=== PATIENT | male | born 1950 | race Caucasian/White ===

== ENCOUNTER 2018-08-17 08:59 | Outpatient (CLI) | payer MEDICARE, SELFPAY ==
[2018-08-17 12:28] LABS: Cholesterol 177 mg/dL (50-200); HDL Cholesterol 41 mg/dL (40-60); LDL CHOLESTEROL 121 mg/dL (<100); Triglyceride 81 mg/dL (30-150); Vitamin B12 212 pg/mL (193-986)
== END 2018-08-17 09:19 ==
PROVIDERS: PCP Emergency Medicine; Visit Provider Emergency Medicine
DX: D51.8 Other vitamin B12 deficiency anemias (principal); E78.5 Hyperlipidemia, unspecified
CPT/HCPCS: 36415; 80061; 83721; 82607

== ENCOUNTER 2019-06-06 14:37 | Outpatient (REF) | payer MEDICARE, OTHER, SELFPAY ==
[2019-06-06 19:27] LABS: Bilirubin Negative (Negative); Blood Negative (Negative); Clarity Clear (Clear); Glucose Negative (Negative); Ketones Negative (Negative); Leukocyte Esterase Moderate (Negative); Nitrite Negative (Negative); Specific Gravity 1.015 (1.005-1.025); Urobilinogen 0.2 EU/dL (Up TO 0.2)
[2019-06-06 20:08] LABS: Bacteria Moderate HPF (Negative); C & S Indicated? Yes; Casts Negative LPF (Negative); Crystals Moderate Amorphous HPF (Negative); Epithelial Cells Negative HPF (Negative); Mucus Negative (Negative); Other Cells Negative (Negative); RBC Negative (0-2); WBC 20-50 HPF (0-5)
== END 2019-06-06 14:57 ==
LOC: LBN 14:37
PROVIDERS: PCP Emergency Medicine; Visit Provider Emergency Medicine
DX: R31.9 Hematuria, unspecified (principal)
CPT/HCPCS: 81003; 81015; 87086

== ENCOUNTER 2019-06-09 00:39 | Outpatient (CLI) | payer MEDICARE, OTHER, SELFPAY ==
--- NOTE | 2019-06-09 06:44 | DI.US_ITS ---
EXAM: US AAA SCREENING CLINICAL HISTORY: family h/o aaa,SCREENING FOR AAA,Z13.6 TECHNIQUE: Ultrasound performed using standard protocol. COMPARISON: No exams were available for comparison FINDINGS: There is no evidence of abdominal aortic aneurysm. Maximum dimension of the aorta is 2.6 cm proximal ly. The proximal iliac arteries are normal in diameter. IMPRESSION: No evidence abdominal aortic aneurysm.
[2019-06-09 08:52] LABS: Anion Gap 10.4 mmol/L (3-11); BUN 18 mg/dL (7-18); CO2 26.6 mmol/L (21.0-32.0); CREATININE 1.28 mg/dL (0.70-1.30); Chloride 106 mmol/L (98-107); Estimated GFR 55.72 (mL/min/1.73m2); Glucose 95 mg/dL (70-100); Potassium 4.5 mmol/L (3.5-5.1); Sodium 143 mmol/L (136-145)
[2019-06-09 08:57] LABS: Bilirubin Negative (Negative); Blood Trace-intact (Negative); Clarity Clear (Clear); Glucose Negative (Negative); Ketones Negative (Negative); Leukocyte Esterase Small (Negative); Nitrite Positive (Negative); Urobilinogen 0.2 EU/dL (Up TO 0.2)
[2019-06-09 09:13] LABS: Bacteria Many HPF (Negative); C & S Indicated? Yes; Casts Negative LPF (Negative); Crystals Negative HPF (Negative); Epithelial Cells Few HPF (Negative); Mucus Trace (Negative); Other Cells Few Transitional (Negative); RBC 0-2 (0-2); WBC >50 HPF (0-5)
[2019-06-12 11:20] LABS: PSA, Screening 0.5 ng/ml (0-4.5)
== END 2019-06-09 00:59 ==
PROVIDERS: PCP Emergency Medicine; Visit Provider Emergency Medicine
DX: Z13.6 Encounter for screening for cardiovascular disorders (principal); I10 Essential (primary) hypertension; R33.9 Retention of urine, unspecified; N39.0 Urinary tract infection, site not specified; R30.0 Dysuria; Z12.5 Encounter for screening for malignant neoplasm of prostate
CPT/HCPCS: 36415; 76706; 80048; 84153; 81003; 81015; 87086

== ENCOUNTER 2019-06-28 01:30 | Outpatient (CLI) | payer MEDICARE, OTHER, SELFPAY ==
[2019-06-28 09:45] LABS: Bilirubin Negative (Negative); Blood Negative (Negative); Clarity Sl Cloudy (Clear); Glucose Negative (Negative); Ketones Negative (Negative); Leukocyte Esterase Small (Negative); Nitrite Negative (Negative); Urobilinogen 0.2 EU/dL (Up TO 0.2); pH 6.5 (5-8)
[2019-06-28 09:55] LABS: Bacteria Packed HPF (Negative); C & S Indicated? Yes; WBC 20-50 HPF (0-5)
== END 2019-06-28 01:50 ==
PROVIDERS: PCP Emergency Medicine; Visit Provider Emergency Medicine
DX: R30.0 Dysuria (principal)
CPT/HCPCS: 87077; 81003; 81015; 87086; 87186

== ENCOUNTER 2019-07-14 01:28 | Outpatient (CLI) | payer MEDICARE, OTHER, SELFPAY ==
[2019-07-14 10:22] LABS: Bilirubin Negative (Negative); Blood Negative (Negative); Clarity Clear (Clear); Glucose Negative (Negative); Ketones Negative (Negative); Leukocyte Esterase Negative (Negative); Nitrite Negative (Negative); Urobilinogen 0.2 EU/dL (Up TO 0.2)
== END 2019-07-14 01:48 ==
PROVIDERS: PCP Emergency Medicine; Visit Provider Emergency Medicine
DX: R30.0 Dysuria (principal)
CPT/HCPCS: 81003

== ENCOUNTER → 2019-09-22 07:55 | Outpatient (BNVA) | payer MEDICARE, OTHER, SELFPAY | PROVIDERS: PCP Emergency Medicine; Referring Provider Emergency Medicine; Visit Provider Urology | DX: R33.9 Retention of urine, unspecified (principal); N32.3 Diverticulum of bladder; N39.0 Urinary tract infection, site not specified | CPT/HCPCS: 81003; 99203; 99214 ==

== ENCOUNTER 2020-03-06 14:21 | Emergency (ER) | payer MEDICARE, OTHER, SELFPAY ==
--- NOTE | 2020-03-06 14:30 | RT.EKG_ITS ---
APPROVED REPORT Exam: Resting ECG Patient Location: E HR:56 bpm ECG Measurements Heart Rate 56 AXIS MS 174 P 38 QRSd 100 QRS -8 QT 429 T 51 QTc 414 <Conclusion> Sinus bradycardia...rate< 60 EKG shows sinus bradycardia 56, normal axis, no STEMI, nondiagnostic EKG
[2020-03-06 14:39] VITALS: BP 154/74; PULSE 57; RESP 18; TEMP 36.7; O2SAT 97
--- NOTE | 2020-03-06 14:45 | DI.RAD_ITS ---
EXAM: XR CHEST 2V PA LATERAL CLINICAL HISTORY: SOB TECHNIQUE: 2D digital imaging was performed. COMPARISON: CR LEFT SHOULDER COMPLETE from 12/03/2017 FINDINGS: MEDIASTINUM: Normal. HEART: Normal. PULMONARY VASCULATURE: Normal. LUNGS: Clear. PLEURAL SPACE: No pleural effusion or pneumothorax. BONE: degenerative changes in the spine OTHER FINDINGS:Right shoulder prosthesis. Hardware in the lower cervical spine. IMPRESSION: No acute pulmonary findings. DATA REPOSITORY: RADIATION DOSE DELIVERED:
[2020-03-06 15:19] LABS: Abs Immature Grans 0.01 10^3/uL (0.0-0.06); Absolute Basophil Count 0.03 10^3/uL (0.0-0.2); Absolute Eosinophil Count 0.07 10^3/uL (0.0-0.7); Absolute Lymphocyte Count 1.83 10^3/uL (1.2-3.4); Absolute Monocyte Count 0.56 10^3/uL (0.1-0.8); Absolute Neutrophil Count 2.27 10^3/uL (1.2-6.7); Basophils % 0.6; Eosinophils % 1.5; HCT 41.1 % (40.0-50.0); HGB 13.9 g/dL (13.5-17.5); Immature Grans % 0.2; Lymphocytes % 38.4; MCH 32.4 pg (27.0-33.0); MCHC 33.8 % (32.0-36.0); MCV 95.8 fL (80-95); MPV 9.9 fL (8.0-11.0); Monocytes % 11.7; Neutrophils % 47.6; Platelet Count 237 10^3/uL (130-400); RBC 4.29 10^6/uL (4.36-5.78); RDW 12.1 % (11.8-14.1); RDW-SD 42.5 fL; WBC 4.77 10^3/uL (4.4-10.8)
[2020-03-06 15:45] LABS: ALT 33 U/L (16-63); AST 22 U/L (15-37); Albumin 3.6 g/dL (3.4-5.0); Alkaline Phosphatase 97 U/L (46-116); Anion Gap 8.8 mmol/L (3-11); BUN 18 mg/dL (7-18); CO2 26.2 mmol/L (21.0-32.0); CREATININE 1.24 mg/dL (0.70-1.30); Calcium 8.4 mg/dL (8.5-10.1); Chloride 104 mmol/L (98-107); Estimated GFR 57.63 (mL/min/1.73m2); Glucose 93 mg/dL (74-106); NT-proBNP 62 pg/mL (<300); Potassium 3.9 mmol/L (3.5-5.1); Sodium 139 mmol/L (136-145); Total Protein 6.8 g/dL (6.4-8.2); Troponin I < 0.05 ng/mL (<0.06)
[2020-03-06 16:01] LABS: D-Dimer 951 ng/mlFEU (<500)
[2020-03-06] MEDS: Normal Saline - Diluent 50 ML VIAL IV (16:45)
[2020-03-06] MEDS: Omnipaque 350 MG/ML 100 ML BTL IJ (16:46)
[2020-03-06] MEDS: Normal Saline Flush 10 ML SYR IVP (16:46)
--- NOTE | 2020-03-06 16:48 | DI.CT_ITS ---
EXAM: CT CHEST PE CTA CLINICAL HISTORY: pre-syncope, SOB. TECHNIQUE: Imaging Protocol: Axial CT angiography was performed with multi-slice acquisition and mu lti-planar and/or 3D reconstructions. CONTRAST MATERIAL: Intravenous: Omnipaque 350 Contrast volume:structured data in ml COMPARISON: CR XR CHEST 2V PA LATERAL from 03/06/2020 FINDINGS: Pulmonary Arteries: No evidence of filling defect to suggest pulmonary emboli. Tracheobronchial tree: Patent where visualized. Mediastinum and Sallie: No dominant adenopathy or fluid collection. Pulmonary parenchyma: No consolidation or dominant measurable mass. Minimal linear atelectasis or sc arring at the right lung apex. No visible emphysematous changes.. Pleura: No effusion or pneumothorax. Heart: The heart is not dilated. No coronary artery calcifications are seen. Aorta: There is motion at the aortic root. There is no evidence of aortic dissection. The ascending aorta is dilated to 4.5 cm.. Upper abdomen: Unremarkable. Bones: Old right 7th and 8th rib fractures. Mild degenerative disc changes. Hardware in the lower c ervical spine. IMPRESSION: No evidence of pulmonary embolism or other acute abnormality. 4.5 centimeter ascending aorta. RADIATION DOSE DELIVERED: 449.76mGy.cm Total DLP DATA REPOSITORY: All CT scans at this facility are submitted to the National Radiology Data Registry (NRDR) Dose Index Registry (DIR) with the [employer] (ACR). RADIATION OPTIMIZATION: All CT scans at this facility use at least one of these dose optimization te chniques: automated exposure control; mA and/or kV adjustment per patient size (includes targeted exa ms where dose is matched to clinical indication); or iterative reconstruction.
--- NOTE | 2020-03-06 17:21 | DI.VRAD_ITS ---
PROCEDURE INFORMATION: Exam: CT Angiography Chest With Contrast Exam date and time: 03/06/2020 4:40 PM Age: 69 years old Clinical indication: Pain; Other: SOB TECHNIQUE: Imaging protocol: Computed tomographic angiography of the chest with intravenous contrast. 3D rendering: MIP and/or 3D reconstructed images were created by the technologist. COMPARISON: CR XR CHEST 2V PA LATERAL 03/06/2020 3:42 PM FINDINGS: Pulmonary arteries: Normal. No pulmonary emboli. Aorta: There is aneurysmal dilatation of the ascending aorta measuring up to 4.5 cm in diameter. No evidence of aortic dissection with some limitation in evaluation of the ascending aorta due to motion. Lungs: There is linear atelectasis or scar in the right pulmonary apex, both lower lobes, and the lingula. No focal area of consolidation. No discrete pulmonary nodule. Pleural space: Unremarkable. No pneumothorax. No pleural effusion. Heart: Unremarkable. No cardiomegaly. No pericardial effusion. Lymph nodes: There are few subcentimeter pretracheal and prevascular lymph nodes. No pathologically enlarged mediastinal or hilar lymph nodes. Bones/joints: Healed fractures right lateral 7th and 8th ribs. No acute fracture. No suspicious lytic or sclerotic bone lesion. Orthopedic hardware anterior lower cervical fusion partially visualized. Soft tissues: Unremarkable. IMPRESSION: 1. No evidence of pulmonary embolus or other acute intrathoracic process. 2. 4.5 cm ascending aortic aneurysm with limited evaluation for dissection but no evidence of dissection. Dictated and Authenticated by: Kyle Rodrigues MD. Ordering:ALFREDA Sadler MD
[2020-03-06 17:40] VITALS: BP 132/76; PULSE 56; RESP 18; TEMP 36.6; O2SAT 100
--- NOTE | 2020-03-06 17:48 | W.ED.GENAD ---
Discharge Plan Disposition Patient Disposition: HOME Condition: Stable Discharge Details Chief Complaint: SOB Clinical Impression: Pre-syncope, Aneurysm of ascending aorta Primary Care Provider: Perry Martini ED Provider: Viktoriya Rojas Home Meds and New Rx's Prescriptions: Continued triamcinolone acetonide 0.1 % ointment 1 applic TP DAILY Qty: 453.6 RF: 0 tamsulosin [Flomax] 0.4 mg capsule 0.4 mg PO .every 3rd day Qty: 30 RF: 12 clobetasol-emollient 15 GM cream 15 gm Topical BID PRN Qty: 3 RF: 6 lisinopril 5 mg tablet 5 mg PO DAILY Qty: 90 RF: 6 pravastatin 10 mg tablet 10 mg PO DAILY Qty: 90 RF: 3 aspirin 81 MG tablet,chewable 81 mg PO DAILY RF: 0 Discharge Instructions Instructions: Thoracic Aortic Aneurysm (ED), Near Syncope (ED) Additional Instructions: Please return immediately to the emergency department if you develop any new or worsening symptoms, if your condition does not improve as expected, or if you become otherwise concerned. It is extremely important that you call soon as possible to make an appointment to be seen in follow-up for this visit by your primary care doctor and with cardiothoracic surgery at [facility] as we discussed. If you do not hear from them tomorrow, please contact the cardiothoracic surgery office at [phone]. Referrals: Perry Martini, DO [Primary Care Provider] - Discharge Data Discharge Date/Time-TO BE ENTERED AT DEPARTURE: 03/06/20 20:50 Medical Decision Making Raúl Renee is a 69 y/o man who presented to the ED with positional lightheadedness/SOB, currently asymptomatic. Pt is well and non-toxic appearing on exam. 2+ systolic murmur. Concern for dehydration, metabolic/lyte derangement, cardiac disease, possible pulmonary embolism, other. Exam/hx not c/w sepsis, acute aortic pathology. Plan for screening labs, EKG, CXR, telemetry. labs reviewed, d-dimer elevated. Plan for CT chest. CT shows no PE, ascending aortic aneurysm 4.5cm. Likely non-actionable urgently, however given pre-syncopal symptoms, fam hx of aortic dz plan for consultation with [facility]. I discussed Pt presentation and results with Dr. Galindo of CT surgery, who recommends outpt f/u with him, will see Pt as outpt in 2 days, their office to call Pt, they will also schedule echo for tomorrow. I discussed this plan with the Pt who is amenable. I had a lengthy discussion with Patient regarding return to emergency department precautions, home care, and importance of outpatient follow-up. Pt verbalizes understanding of the plan and is amenable. Patient discharged to home with clear plan for outpatient follow-up. All questions were answered. Disposition decision was made weighing the risks and benefits of hospitalization versus outpatient treatment, the risk for further decompensation, and the patient's wishes. Medical Records Medical records reviewed: Yes I reviewed the patient's medical records. Imaging Data Radiologic Study: Attestation: I personally reviewed and interpreted this imaging study as follows: Radiologist's impression: EXAM: CT CHEST PE CTA CLINICAL HISTORY: pre-syncope, SOB. TECHNIQUE: Imaging Protocol: Axial CT angiography was performed with multi-slice acquisition and multi-planar and/or 3D reconstructions. CONTRAST MATERIAL: Intravenous: Omnipaque 350 Contrast volume:structured data in ml COMPARISON: CR XR CHEST 2V PA LATERAL from 03/06/2020 FINDINGS: Pulmonary Arteries: No evidence of filling defect to suggest pulmonary emboli. Tracheobronchial tree: Patent where visualized. Mediastinum and Sallie: No dominant adenopathy or fluid collection. Pulmonary parenchyma: No consolidation or dominant measurable mass. Minimal linear atelectasis or scarring at the right lung apex. No visible emphysematous changes.. Pleura: No effusion or pneumothorax. Heart: The heart is not dilated. No coronary artery calcifications are seen. Aorta: There is motion at the aortic root. There is no evidence of aortic dissection. The ascending aorta is dilated to 4.5 cm.. Upper abdomen: Unremarkable. Bones: Old right 7th and 8th rib fractures. Mild degenerative disc changes. Hardware in the lower cervical spine. IMPRESSION: No evidence of pulmonary embolism or other acute abnormality. 4.5 centimeter ascending aorta. EXAM: XR CHEST 2V PA LATERAL CLINICAL HISTORY: SOB TECHNIQUE: 2D digital imaging was performed. COMPARISON: CR LEFT SHOULDER COMPLETE from 12/03/2017 FINDINGS: MEDIASTINUM: Normal. HEART: Normal. PULMONARY VASCULATURE: Normal. LUNGS: Clear. PLEURAL SPACE: No pleural effusion or pneumothorax. BONE: degenerative changes in the spine OTHER FINDINGS:Right shoulder prosthesis. Hardware in the lower cervical spine. IMPRESSION: No acute pulmonary findings. Lab Data Lab results reviewed: Yes I reviewed the patient's lab results. Labs: Laboratory Tests Range/Units 03/06/20 03/06/20 03/06/20 15:10 15:10 15:10 WBC (4.4-10.8) 10^3/uL 4.77 RBC (4.36-5.78) 10^6/uL 4.29 L Hgb (13.5-17.5) g/dL 13.9 Hct (40.0-50.0) % 41.1 MCV (80-95) fL 95.8 H MCH (27.0-33.0) pg 32.4 MCHC (32.0-36.0) % 33.8 RDW (11.8-14.1) % 12.1 Plt Count (130-400) 10^3/uL 237 MPV (8.0-11.0) fL 9.9 Immature Gran % 0.2 Neutrophils % 47.6 Lymphocytes % 38.4 Monocytes % 11.7 Eosinophils % 1.5 Basophils % 0.6 Absolute Neutrophils (1.2-6.7) 10^3/uL 2.27 Absolute Lymphocytes (1.2-3.4) 10^3/uL 1.83 Absolute Monocytes (0.1-0.8) 10^3/uL 0.56 Absolute Eosinophils (0.0-0.7) 10^3/uL 0.07 Absolute Basophils (0.0-0.2) 10^3/uL 0.03 D-Dimer (<500) ng/mlFEU 951 H Sodium (136-145) mmol/L 139 Potassium (3.5-5.1) mmol/L 3.9 Chloride (98-107) mmol/L 104 Carbon Dioxide (21.0-32.0) mmol/L 26.2 Anion Gap (3-11) mmol/L 8.8 BUN (7-18) mg/dL 18 Creatinine (0.70-1.30) mg/dL 1.24 Estimated GFR/1.73 m2 (mL/min/1.73m2) 57.63 Glucose (74-106) mg/dL 93 Calcium (8.5-10.1) mg/dL 8.4 L Total Bilirubin (0.2-1.0) mg/dL 1.0 AST (15-37) U/L 22 ALT (16-63) U/L 33 Alkaline Phosphatase (46-116) U/L 97 Troponin I (<0.06) ng/mL < 0.05 NT-Pro-B Natriuret Pep (<300) pg/mL 62 Total Protein (6.4-8.2) g/dL 6.8 Albumin (3.4-5.0) g/dL 3.6 Range/Units 03/06/20 17:50 WBC (4.4-10.8) 10^3/uL RBC (4.36-5.78) 10^6/uL Hgb (13.5-17.5) g/dL Hct (40.0-50.0) % MCV (80-95) fL MCH (27.0-33.0) pg MCHC (32.0-36.0) % RDW (11.8-14.1) % Plt Count (130-400) 10^3/uL MPV (8.0-11.0) fL Immature Gran % Neutrophils % Lymphocytes % Monocytes % Eosinophils % Basophils % Absolute Neutrophils (1.2-6.7) 10^3/uL Absolute Lymphocytes (1.2-3.4) 10^3/uL Absolute Monocytes (0.1-0.8) 10^3/uL Absolute Eosinophils (0.0-0.7) 10^3/uL Absolute Basophils (0.0-0.2) 10^3/uL D-Dimer (<500) ng/mlFEU Sodium (136-145) mmol/L Potassium (3.5-5.1) mmol/L Chloride (98-107) mmol/L Carbon Dioxide (21.0-32.0) mmol/L Anion Gap (3-11) mmol/L BUN (7-18) mg/dL Creatinine (0.70-1.30) mg/dL Estimated GFR/1.73 m2 (mL/min/1.73m2) Glucose (74-106) mg/dL Calcium (8.5-10.1) mg/dL Total Bilirubin (0.2-1.0) mg/dL AST (15-37) U/L ALT (16-63) U/L Alkaline Phosphatase (46-116) U/L Troponin I (<0.06) ng/mL < 0.05 NT-Pro-B Natriuret Pep (<300) pg/mL Total Protein (6.4-8.2) g/dL Albumin (3.4-5.0) g/dL ECG Data Attestation: I personally reviewed and interpreted this ECG (s) as follows: Interpretation: EKG shows sinus bradycardia 56, normal axis, no STEMI, nondiagnostic EKG HPI General Mode of arrival: ambulatory. Date/Time Provider Initiated Documentation: 03/06/20 14:54. Limitations to Documentation: no limitations. Information obtained by: patient, RN notes reviewed and old records reviewed. HPI Narrative: Raúl Renee is a 69 y/o man with a h/o heavy alcohol use, HTN, HLD presenting to the emergency department with lightheadedness. Pt reports that over the past 2-3 months he has been having lightheadedness with standing. Pt reports this has been most noticeable at work. 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 When he goes from this position to standing, he often feels very lightheadeded as if he is going to pass out. He reports sensation passes quickly after sitting. He reports that he has been able to go about his activities as usual despite symtpoms. Lightheadedness is sometimes accompanied by SOB, which also resolves quickly. Pt reports that symptoms have not been worsening over time. Has never fainted or lost consciousness. Pt reports no new change, but came to the ED at the urging of his . No recent illness. Has been eating and drinking as usual. Lightheadedness only occurs with going from lying down to standing or sitting to standing. Denies pain, numbness, weakness, rash, vomiting, diarrhea, fever, cough. Related Data Home Medications Medication Instructions Recorded Confirmed aspirin 81 mg PO DAILY 03/27/13 03/06/20 clobetasol-emollient 15 gm TOPICAL BID PRN #3 tube 07/07/17 03/06/20 lisinopril 5 mg tablet 5 mg PO DAILY #90 tab-cap 05/30/19 03/06/20 triamcinolone acetonide 0.1 % 1 applic TP DAILY #453.6 gm 06/06/19 03/06/20 topical ointment pravastatin 10 mg tablet 10 mg PO DAILY #90 tab-cap 08/29/19 03/06/20 tamsulosin 0.4 mg capsule 0.4 mg PO .every 3rd day #30 cap 09/22/19 03/06/20 Previous Rx's Medication Instructions Recorded clobetasol-emollient 15 gm TOPICAL BID PRN #3 tube 07/07/17 lisinopril 5 mg tablet 5 mg PO DAILY #90 tab-cap 05/30/19 triamcinolone acetonide 0.1 % 1 applic TP DAILY #453.6 gm 06/06/19 topical ointment pravastatin 10 mg tablet 10 mg PO DAILY #90 tab-cap 08/29/19 tamsulosin 0.4 mg capsule 0.4 mg PO .every 3rd day #30 cap 09/22/19 Allergies Allergy/AdvReac Type Severity Reaction Status Date / Time amlodipine AdvReac Intermediate periphreal Verified 08/15/19 08:58 edema General Stated Complaint: SOB KISHA: 2 Review of Systems Narrative: Constitutional: denies fevers Eyes: denies eye pain ENT: denies ear pain, dental pain, sore throat Cardiovascular: denies chest pain, edema, reports lightheadedness Respiratory: denies cough, reports SOB as per HPI GI: denies abdominal pain, vomiting, diarrhea : denies flank pain MSK: denies back pain, neck pain, arthralgias, myalgias Skin: denies rash Neuro: denies headaches, numbness, weakness [facility] Medical History (Updated 03/06/20 @ 19:36 by Viktoriya Rojas MD) Benign paroxysmal positional vertigo (Acute 01/12/18) Bladder diverticulum (Acute 09/27/15) BPH (benign prostatic hyperplasia) Cervicalgia (Acute) s/p cervical fusion Chest pain (Acute 01/17/14) neg echo stress 02/19 neg MPI 06/24 Chronic left shoulder pain (Acute 01/12/18) Essential hypertension (Acute) Family history of abdominal aortic aneurysm (AAA) (Acute 07/07/17) HTN (hypertension) Hyperlipemia (Acute 02/28/14) Incomplete bladder emptying (Acute 09/27/15) Other vitamin B12 deficiency anemia (Acute) Psoriasis (Acute 07/07/17) Recurrent UTI (Acute 09/10/15) Strain of tendon of right rotator cuff (Acute 01/17/14) Transient global amnesia (Acute) DR CARDENAS 04/27; DR RUIZ 06/21/ Umbilical hernia (Acute 01/17/14) Surgical History (Updated 05/30/19 @ 13:13 by Joe Tariq) cevical fusion (06/30/99) [place], [place] Reconstruction right foot Status post replacement of right shoulder joint (Acute) Family History (Updated 06/07/19 @ 09:53 by Brijesh Roberts) Mother , age 78 Alzheimer disease Father , age 82 Cancer Sister No problems noted. Brother No problems noted. Maternal Grandfather Heart disease Paternal Grandfather Heart disease Maternal Grandmother No problems noted. Paternal Grandmother No problems noted. Son No problems noted. STEP DAUGHTER No problems noted. STEP DAUGHTER Colon cancer Sister No problems noted. Brother No problems noted. Social History Smoking/Tobacco Use Status: Former Tobacco Use Alcohol Intake: current Alcohol Intake frequency: holidays/special occasions only Drug use: Never Substance use type: does not use Caregiver/Support person: No Household members: spouse Housing: house Communication Needs: Hard of Hearing Do you need help understanding health information?: Never Pets and animals: Yes Pets and animals: cat(s) and dog(s) Sexually active: Yes Do you think of yourself as: straight/heterosexual Current gender identity: female What is your relationship status?: How often do you talk on the phone with friends or family?: once per week How often do you get together with friends or relatives?: once per week How often do you attend presybeterian or mosque services?: decline to answer Do you belong to any clubs or organized social groups?: no Panel score (0-1 are the most socially isolated patients): 1 What type of physical activity do you participate in: decline to answer Duration: decline to answer Frequency: decline to answer Arminda/Presybeterian: None Special arminda needs: No Seatbelt use: never Helmet use: Yes Helmet use: always 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 Do you feel safe at home: Yes Do you feel safe in your relationship?: Yes Exam Narrative Exam Narrative: Constitutional: well and [id number], pleasant, conversing normally HENT: head atraumatic/normocephalic/normal inspection, mucous membranes moist Eyes: conjunctiva normal, sclera normal, pupils 3mm b/l Neck: no stridor, normal ROM, trachea midline Chest: normal inspection Resp: normal work of breathing, LCTAB Cardio: normal rate, normal rhythm, 2+ systolic murmur GI: abdomen soft, non-tender, non-distended Back: normal inspection, no rash Skin: warm, dry, normal color, no rash Neuro: alert, not altered, grossly non-focal, normal tone Ext: trace b/l LE edema, no posterior calf TTP Psych: normal mood, normal affect, normal behavior Course Vital Signs Vital signs: Vital Signs Temperature 36.7 C 03/06/20 14:39 Pulse 57 L 03/06/20 14:39 Respiratory Rate 18 03/06/20 14:39 Blood Pressure 154/74 H 03/06/20 14:39 Pulse Oximetry 97 03/06/20 14:39 Temperature 36.6 C 03/06/20 17:40 Temperature Source Temporal Artery Scan 03/06/20 17:40 Pulse 56 L 03/06/20 17:40 Respiratory Rate 18 03/06/20 17:40 Respiratory Effort 03/06/20 15:46 Respiratory Depth Normal 03/06/20 15:46 Blood Pressure 132/76 03/06/20 17:40 Pulse Oximetry 100 03/06/20 17:40 Oxygen Delivery Method Room Air 03/06/20 17:40 Oxygen Flow Rate 0 03/06/20 17:40 Pain Level 0 03/06/20 17:40 Lab/Test Results Lab/Test Results: Laboratory Tests Range/Units 03/06/20 03/06/20 03/06/20 15:10 15:10 15:10 WBC (4.4-10.8) 10^3/uL 4.77 RBC (4.36-5.78) 10^6/uL 4.29 L Hgb (13.5-17.5) g/dL 13.9 Hct (40.0-50.0) % 41.1 MCV (80-95) fL 95.8 H MCH (27.0-33.0) pg 32.4 MCHC (32.0-36.0) % 33.8 RDW (11.8-14.1) % 12.1 Plt Count (130-400) 10^3/uL 237 MPV (8.0-11.0) fL 9.9 Immature Gran % 0.2 Neutrophils % 47.6 Lymphocytes % 38.4 Monocytes % 11.7 Eosinophils % 1.5 Basophils % 0.6 Absolute Neutrophils (1.2-6.7) 10^3/uL 2.27 Absolute Lymphocytes (1.2-3.4) 10^3/uL 1.83 Absolute Monocytes (0.1-0.8) 10^3/uL 0.56 Absolute Eosinophils (0.0-0.7) 10^3/uL 0.07 Absolute Basophils (0.0-0.2) 10^3/uL 0.03 D-Dimer (<500) ng/mlFEU 951 H Sodium (136-145) mmol/L 139 Potassium (3.5-5.1) mmol/L 3.9 Chloride (98-107) mmol/L 104 Carbon Dioxide (21.0-32.0) mmol/L 26.2 Anion Gap (3-11) mmol/L 8.8 BUN (7-18) mg/dL 18 Creatinine (0.70-1.30) mg/dL 1.24 Estimated GFR/1.73 m2 (mL/min/1.73m2) 57.63 Glucose (74-106) mg/dL 93 Calcium (8.5-10.1) mg/dL 8.4 L Total Bilirubin (0.2-1.0) mg/dL 1.0 AST (15-37) U/L 22 ALT (16-63) U/L 33 Alkaline Phosphatase (46-116) U/L 97 Troponin I (<0.06) ng/mL < 0.05 NT-Pro-B Natriuret Pep (<300) pg/mL 62 Total Protein (6.4-8.2) g/dL 6.8 Albumin (3.4-5.0) g/dL 3.6
[2020-03-06 18:12] VITALS: PULSE 54; RESP 20; TEMP 36.7; O2SAT 98
[2020-03-06 18:14] LABS: Troponin I < 0.05 ng/mL (<0.06)
--- NOTE | 2020-03-06 19:32 | NUR.NOTE ---
REFERALTO PCP FOR FOLLOW UP WITHIN WEEK FOR SYNCOPE AND ANUYRISMNursing Note:
[2020-03-06] MEDS: Normal Saline 500 ML IV (19:47)
[2020-03-06 20:54] VITALS: BP 133/81; PULSE 55; RESP 16; O2SAT 97
== END 2020-03-06 20:50 | disposition home or self-care (01) ==
PROVIDERS: Emergency Provider Student in an Organized Health Care Education/Training Program; PCP Emergency Medicine
DX: I71.2 Thoracic aortic aneurysm, without rupture (principal); H81.10 Benign paroxysmal vertigo, unspecified ear; R79.1 Abnormal coagulation profile; I10 Essential (primary) hypertension
CPT/HCPCS: 36415; 71275; 80053; 93005; 96360; 99285; 71046; 83880; 84484; 85025; 85379; 93010; 99284; J3490

== ENCOUNTER → 2020-03-11 11:11 | Outpatient (BNVA) | payer MEDICARE, OTHER, SELFPAY | PROVIDERS: PCP Emergency Medicine; Referring Provider Emergency Medicine; Visit Provider Internal Medicine Cardiovascular Disease | DX: R06.02 Shortness of breath (principal); R07.89 Other chest pain; I10 Essential (primary) hypertension; R55 Syncope and collapse; R60.1 Generalized edema | CPT/HCPCS: 99204; 99215 ==

== ENCOUNTER 2020-03-18 01:20 | Outpatient (CLI) | payer MEDICARE, OTHER, SELFPAY ==
--- NOTE | 2020-03-18 06:30 | DI.NM_ITS ---
APPROVED REPORT Exam: Exercise Treadmill Patient Location: Out-Patient Room/Bed: Stress Nurse: Anya Villagomez RN BMI: 30.64 Baseline Rhythm: Sinus Bradycardia, APC's Indications: Pre-Operative CV Evaluation, Dyspnea, SOB Medical History Medical History: CAD non obstructive, HTN, Hyperlipidemia, Ascending aortic anurysm Cardiac Medications: Aspirin, Lisinopril, Pravastatin Allergies: amlodipine Cardiac Risk Factors: HTN, Hyperlipidemia, FHX of CAD, SOB, CVD Pretest Chest Pain Characteristics: No chest pain Exercise History: Physically active Lung Sounds: Clear to auscultation Heart Sounds: Regular Stress Test Details Test: Exercise stress testing was performed using a Ronald protocol. Nuclear Acquisition: Rest Tc-99m/Stress Tc-99m 1 day Rest Isotope: Tc-99m Sestamibi. Dose: 15 Date: 03/18/2020 Injection Time: 0840 Stress Isotope: Tc-99m Sestamibi. Dose: 45 Date: 03/18/2020 Injection Time: 1010 HR Resting HR Supine: 57 bpm Max Heart Rate (APMHR): 150 bpm Resting HR Standin bpm Target HR (85% APMHR): 127 bpm Max HR Achieved: 146 bpm % of APMHR: 97 Recovery HR: 75 bpm HR response to stress: Normal HR response to stress BP Resting BP Supine: 152/92 mmHg Resting BP Standin/88 mmHg Max BP: 186/92 mmHg Recovery BP: 170/88 mmHg BP response to stress: Abnormal hypertensive response to stress. ECG Resting ECG: Sinus Bradycardia, Poor R-wave progression Ectopy: apc's Stress ECG: Sinus Tachycardia ST Change: Normal Arrhythmia: APC's, VPC's bigeminy of APC's and PVC's Recovery ECG: Sinus Rhythm Recovery Arrhythmia: APC, VPC Clinical Reason for Termination: Target HR Achieved Stress Symptoms: General Fatigue Exercise duration: 04 min59 sec Highest Stage Reached: Stage 2: 2.5 mph at 12% grade. Exercise capacity: 7.03 METs Functional Capacity: Mildly deminished capacity Stress ECG Conclusion 1. Patient exercised for 5 minutes (7 METS) 2. There are no symptoms suggestive of ischemia. 3. There were no EKG changes suggestive of ischemia. Critical Notification Critical Value: No MPI Conclusion The ejection fraction was 69% with stress. There were no wall motion abnormalities. There is a small fixed perfusion defect at the apex without any surrounding ischemia. This represents an abnormal SPECT stress test. Radiologist Interpretation Radiologist Interpretation by: Neftaly Munroe MD Interpretation Date/Time: 03/19/2020 08:27:47
== END 2020-03-18 01:40 ==
PROVIDERS: PCP Emergency Medicine; Visit Provider Internal Medicine Cardiovascular Disease
DX: R07.9 Chest pain, unspecified (principal); R06.09 Other forms of dyspnea; R06.02 Shortness of breath; I10 Essential (primary) hypertension; E78.5 Hyperlipidemia, unspecified; Z82.49 Family history of ischemic heart disease and other diseases of the circulatory system; R94.39 Abnormal result of other cardiovascular function study
CPT/HCPCS: 78452; 93016; 93018; 93017

== ENCOUNTER 2020-04-17 00:57 | Outpatient (CLI) | payer MEDICARE, OTHER, SELFPAY ==
--- NOTE | 2020-04-17 07:27 | DI.US_ITS ---
APPROVED REPORT EXAM: Comprehensive 2D, Doppler, and color-flow Echocardiogram Patient Location: Out-Patient Vice President Business Development: Fely Morelos RDCS (AE) Indications: SOB, HTN Other Information Study Quality: Good Conclusion Left Ventricle : The left ventricle is normal size. The left ventricular systolic function is normal. The left ventricular ejection fraction is within the normal range. There is normal left ventricular wall thickness. There is normal LV segmental wall motion. The left ventricular diastolic function is normal. LVEF is 58%. Right Ventricle : The right ventricle is normal size. The right ventricular systolic function is norm al. The RVSP is 25.4 mmHg. Atria : The left atrium size is normal. The right atrium size is normal. Valves: There are no hemodynamically significant valvular lesions. Great Vessels : The aortic root is normal in size. The ascending aorta is severely dilated (4.4cm). A ortic arch is dilated. IVC is normal in size and collapses >50% with inspiration. There are no prior images available for comparison. The ascending aorta is dilated as previously see n on CT scan. Wall motion Left Ventricle The left ventricle is normal size. The left ventricular systolic function is normal. The left ventric ular ejection fraction is within the normal range. There is normal left ventricular wall thickness. T here is normal LV segmental wall motion. The left ventricular diastolic function is normal. There is no ventricular septal defect visualized. LVEF is 58%. Right Ventricle The right ventricle is normal size. The right ventricular systolic function is normal. The RVSP is 25 .4 mmHg. Atria The left atrium size is normal. The right atrium size is normal. The interatrial septum is intact wit h no evidence for an atrial septal defect. Aortic Valve The Aortic valve is sclerotic. Aortic valve is trileaflet. There is no aortic valvular stenosis. No a ortic regurgitation is present. Mitral Valve The mitral valve is normal in structure. No evidence of mitral valve stenosis. Trace to mild mitral r egurgitation. Tricuspid Valve The tricuspid valve is normal in structure. There is no tricuspid valve stenosis. Mild tricuspid regu rgitation. Pulmonic Valve The pulmonary valve is normal in structure. There is no pulmonic valvular stenosis. Trace pulmonic re gurgitation. Great Vessels The aortic root is normal in size. The ascending aorta is severely dilated (4.4cm). Aortic arch is di lated. IVC is normal in size and collapses >50% with inspiration. Pericardium There is no pericardial effusion. 2D Dimensions IVSD d PLAX 0.87 cm M: 0.6-1.2 LV Vol A2C d MOD 109.9 mL LVPW d PLAX 0.89 cm M: 0.6 - 1.2 LV Vol A4C d MOD 109.5 mL LVID d PLAX 4.79 cm M: 4.2 - 5.8 LA vol/ BSA A2C s A-L 25.3 mL/m2 LVDs 3.30 cm M: 2.5 - 4.0 LA vol/ BSA A4C s A-L 16.4 mL/m2 Ao Root d 3.41 cm M: 3.1 - 3.7 LA Vol/ BSA Biplane s A-L 20.7 mL/m2 RA Area A4C 10.94 cm2 LA Area A4C s MOD 14.65 cm2 RA Vol/ BSA A4C s A-L 10.5 mL/m2 LA Area A2C s MOD 18.46 cm2 Ao Asc Diam d 4.40 cm M: 2.6 - 3.4 LV EF A4C MOD 57.5 % LV EF Teichholz 58.2 % LV EF A2C MOD 55.4 % LVEF (Dailey's) 56.55 % M: 52 - 72 LV EF Biplane MOD 56.6 % LV Volume 80.74 mL M: 62 - 150 SV 63.25 mL LV Volume Index 35.88 mL/m2 M: 34 - 74 SV Index 28.08 mL/m2 LV Vol Biplane MOD 111.8 mL FS 30.70 % M-Mode TAPSE 1.85 cm (M/F) >1.7 LV Diastology MV E' medial 0.129 (>0.07 m/s) E/A Ratio 1.1 LV E/e MED 5.95 (<14) MV E Vmax 0.77 (0.4-1.3 m/s) MV E' lateral 0.117 (>0.1 m/s) MV A Vmax 0.70 (0.4-1.3 m/s) LV E/e LAT 6.55 (<14) MV E/A Ratio 1.03 MV E/E' medial 5.99 MV E/E' lateral 6.59 Aortic Valve LVOT Area 3.46 cm2 AoV Area Vmax 2.29 cm2 LVOT Vmax 1.07 m/s AoV Area/ BSA (Vmax) 1.02 cm2/m2 LVOT Mean Jac. 0.75 m/s PAYTON Mean Jac. 2.33 cm2 LVOT Peak Grad 4.6 mmHg PAYTON Mean Jac. Index 1.03 cm2/m2 LVOT Mean Grad 2.6 mmHg LVOT VTI 0.269 m LVOT Diam s 2.05 cm AoV Vmax 1.61 m/s Velocity Ratio 0.66 AoV Mean Jac. 1.11 m/s AoV Peak Grad 10.4 mmHg LVOT SV 92.82 mL AoV Mean Grad 5.6 mmHg AoV VTI 0.388 m AoV Area VTI 2.39 cm2 AoV Area/ BSA (VTI) 1.06 cm/m2 Mitral Valve MV DT 215 (160-240 msec) MV PHT 62 msec MV Area PHT 3.52 cm2 Pulmonary Valve PV Vmax 0.90 (0.5-1.5 m/s) RVOT Peak Gr. 1.87 mmHg PV Peak Grad 3.2 mmHg RVOT Mean Gr. 1.05 mmHg PV Mean Grad 1.8 mmHg RVOT VTI 0.195 m PV VTI 0.225 m RVOT Vmax 0.68 m/s Tricuspid Valve TR Peak Grad 22.3 mmHg TR Vmax 2.37 m/s RA Pressure 3.00 mmHg RVSP (TR) 25.4 mmHg
== END 2020-04-17 01:17 ==
PROVIDERS: PCP Emergency Medicine; Visit Provider Internal Medicine Cardiovascular Disease
DX: I10 Essential (primary) hypertension (principal); I77.810 Thoracic aortic ectasia
CPT/HCPCS: 93306

== ENCOUNTER → 2020-04-23 09:32 | Outpatient (BNVA) | payer MEDICARE, OTHER, SELFPAY | PROVIDERS: PCP Emergency Medicine; Referring Provider Emergency Medicine; Visit Provider Internal Medicine Cardiovascular Disease | DX: R06.02 Shortness of breath (principal); R07.89 Other chest pain; R60.0 Localized edema; I10 Essential (primary) hypertension; I77.810 Thoracic aortic ectasia | CPT/HCPCS: 99214 ==

== ENCOUNTER → 2020-06-03 11:08 | Outpatient (BNVA) | payer MEDICARE, OTHER, SELFPAY | PROVIDERS: PCP Emergency Medicine; Referring Provider Emergency Medicine; Visit Provider Internal Medicine Cardiovascular Disease | DX: I71.2 Thoracic aortic aneurysm, without rupture (principal); R07.89 Other chest pain; I10 Essential (primary) hypertension | CPT/HCPCS: 99213 ==

== ENCOUNTER 2020-09-27 12:27 | Outpatient (REF) | payer MEDICARE, OTHER, SELFPAY | END 2020-09-27 12:28 | disposition home or self-care (01) | LOC: LBN 12:27 | PROVIDERS: PCP Emergency Medicine; Visit Provider Nurse Practitioner Family | DX: R39.9 Unspecified symptoms and signs involving the genitourinary system (principal) | CPT/HCPCS: 87077; 87086; 87186 ==

== ENCOUNTER 2020-12-09 01:02 | Outpatient (CLI) | payer MEDICARE, OTHER, SELFPAY ==
--- NOTE | 2020-12-09 07:15 | DI.CT_ITS ---
Exam(s) CT CHEST PE CTA EXAM: CT CHEST PE CTA CLINICAL HISTORY: Ascending aortic aneurysm,I71.2. TECHNIQUE: Imaging Protocol: Axial CT angiography was performed with multi-slice acquisition and mu lti-planar and/or 3D reconstructions. CONTRAST MATERIAL: Intravenous: Omnipaque 350 Contrast volume:100 mL COMPARISON: CT CT CHEST PE CTA from 03/06/2020 FINDINGS: Tracheobronchial tree: Patent where visualized. Pulmonary parenchyma: No consolidation or dominant measurable mass. There is unchanged scarring in th e right apex, the left lingula and the left lower lobe. Pulmonary Arteries: No evidence of filling defect to suggest pulmonary emboli. Mediastinum and Sallie: No dominant adenopathy or fluid collection. Visualized thyroid gland: Unremarkable. Pleura: No effusion or pneumothorax. Heart: The heart is not dilated. No coronary artery calcifications are seen. No pericardial effusion. Aorta: The ascending aorta again measures 4.5 cm. Upper abdomen: There is diverticulosis of the descending colon but no evidence of acute diverticulit is. There is a duodenal diverticulum present Soft tissues: Unremarkable. Bones: The patient has a right total shoulder replacement. Anterior cervical spine fusion is noted. IMPRESSION: 1. Stable 4.5 cm ascending thoracic aorta. 2. No acute pulmonary process. RADIATION DOSE DELIVERED: 612.95mGy.cm Total DLP DATA REPOSITORY: All CT scans at this facility are submitted to the National Radiology Data Registry (NRDR) Dose Index Registry (DIR) with the [employer] (ACR). RADIATION OPTIMIZATION: All CT scans at this facility use at least one of these dose optimization te chniques: automated exposure control; mA and/or kV adjustment per patient size (includes targeted exa ms where dose is matched to clinical indication); or iterative reconstruction.
[2020-12-09 12:20] LABS: CREATININE 1.3 mg/dL (0.70-1.30); Estimated GFR 54.42 (mL/min/1.73m2)
[2020-12-09] MEDS: Omnipaque 350 MG/ML 100 ML BTL IJ (12:47)
[2020-12-09] MEDS: Normal Saline - Diluent 50 ML VIAL IV (12:48)
== END 2020-12-09 01:22 ==
PROVIDERS: Internal Medicine Cardiovascular Disease; PCP Emergency Medicine; Visit Provider Internal Medicine Cardiovascular Disease
DX: I71.2 Thoracic aortic aneurysm, without rupture (principal); J98.4 Other disorders of lung
CPT/HCPCS: 71275; 82565; J3490

== ENCOUNTER → 2020-12-16 09:34 | Outpatient (BNVA) | payer MEDICARE, OTHER, SELFPAY | PROVIDERS: PCP Emergency Medicine; Referring Provider Emergency Medicine; Visit Provider Internal Medicine Cardiovascular Disease | DX: I10 Essential (primary) hypertension (principal); I71.2 Thoracic aortic aneurysm, without rupture; R06.02 Shortness of breath; R07.89 Other chest pain | CPT/HCPCS: 99214; 99213 ==

== ENCOUNTER 2021-01-23 00:34 | Outpatient (CLI) | payer MEDICARE, OTHER, SELFPAY ==
--- NOTE | 2021-01-23 07:30 | DI.MRI_ITS ---
Exam(s) MR BRAIN WO EXAM: MR BRAIN WO CLINICAL HISTORY: TIA. bilat visual loss,G45.9 TECHNIQUE: Multiplanar multisequence MRI of the brain was performed. COMPARISON: No exams were available for comparison FINDINGS: CEREBRAL PARENCHYMA: There is no evidence of intracranial hemorrhage, mass effect, or shift of midline structures. There are no extra-axial fluid collections. Ventricles are not enlarged or shifted. There is no significant focal signal abnormality in the cerebellar hemispheres nor within the kristen, m idbrain, and thalami. There are multiple small foci of signal abnormality in the Wendi in supra ventricular white matter con sistent with nonacute ischemic changes. There is also a nonacute appearing small lacunar infarct whi ch involve the posterior aspect of the right side of the corpus callosum, measuring approximately 9 x 4 millimeters. There is no significant focal signal abnormality evident on diffusion imaging to suggest acute ischem ic event. PITUITARY GLAND: No mass nor parasellar abnormality. No obvious abnormality in the cavernous sinuses. FLOW VOIDS: The expected flow void are noted. No evidence of obvious aneurysm nor obvious vascular ma lformation. PARANASAL SINUSES: The visualized paranasal sinuses appear unremarkable. No obvious finding ORBITS: No obvious findings. IMPRESSION: Chronic small-vessel white matter ischemic changes. No acute territorial infarction. No evidence of intracranial hemorrhage. The amount of involutional changes consistent with this patient's age. DATA REPOSITORY:
== END 2021-01-23 00:54 ==
PROVIDERS: PCP Emergency Medicine; Visit Provider Emergency Medicine
DX: G45.9 Transient cerebral ischemic attack, unspecified (principal)
CPT/HCPCS: 70551

== ENCOUNTER → 2021-05-05 09:37 | Outpatient (BNVA) | payer MEDICARE, OTHER, SELFPAY | PROVIDERS: PCP Emergency Medicine; Referring Provider Emergency Medicine; Visit Provider Psychiatry & Neurology Neurology | DX: H54.3 Unqualified visual loss, both eyes (principal); I10 Essential (primary) hypertension | CPT/HCPCS: 99214 ==

== ENCOUNTER 2021-10-03 08:17 | Outpatient (CLI) | payer MEDICARE, OTHER, SELFPAY ==
[2021-10-03] MEDS: Albuterol HFA 18 GM 200 PUFF INH IH (10:12)
[2021-10-03] MEDS: Inhaler, Assist Device 1 EACH MC (10:13)
== END 2021-10-03 08:18 | disposition home or self-care (01) ==
PROVIDERS: PCP Family Medicine; Visit Provider Emergency Medicine
DX: R06.00 Dyspnea, unspecified (principal); Z87.891 Personal history of nicotine dependence; E66.9 Obesity, unspecified
CPT/HCPCS: 94060; 94726; 94729

== ENCOUNTER 2021-10-13 03:00 | Outpatient (CLI) | payer MEDICARE, OTHER, SELFPAY ==
--- NOTE | 2021-10-13 06:30 | DI.RAD_ITS ---
Exam(s) XR CHEST 2V PA LATERAL EXAM: XR CHEST 2V PA LATERAL CLINICAL HISTORY: DYSPNEA ON EXERTION,R06.00 TECHNIQUE: 2D digital imaging was performed. COMPARISON: CR XR CHEST 2V PA LATERAL from 03/06/[address] CHEST PE CTA from 12/09/2020 FINDINGS: MEDIASTINUM: Normal. HEART: Normal. PULMONARY VASCULATURE: Normal. LUNGS: Clear. PLEURAL SPACE: No pleural effusion or pneumothorax. BONE:Unremarkable for age. Right shoulder prosthesis. Fusion hardware lower cervical. IMPRESSION: No acute abnormality. DATA REPOSITORY: RADIATION DOSE DELIVERED:
== END 2021-10-13 03:20 ==
PROVIDERS: PCP Family Medicine; Visit Provider Emergency Medicine
DX: R06.00 Dyspnea, unspecified (principal)
CPT/HCPCS: 71046

== ENCOUNTER 2022-06-26 01:37 | Outpatient (CLI) | payer MEDICARE, OTHER, SELFPAY ==
--- OUTSIDE RECORDS SUMMARY | 2022-06-26 01:44 | XMS_ITS | Encounter Summary ---
:1950 Demographics Home Phone Preferred Language Unknown Marital Status Unknown Spiritism Affiliation Unknown Race Unknown Ethnic Group Unknown Author Organization [facility] Address [address] [place] [address] Care Team Providers Name Role Phone Unknown, Provider Primary Care Provider Encounter Details Date Type Department Care Team Description 07/02/2019 Lab Requisition [facility] Perry Martini ncounter for other Pathology & F, DO general examination Laboratory Medicine [address] [place] [id number] [address] [place] [address] Social History Tobacco Use Types Packs/Day Years Used Date Smoking Tobacco: Never Assessed Sex Assigned at Date Recorded Not on file documented as of this encounter Plan of Treatment Not on filedocumented as of this encounter Procedures Procedure Name Priority Date/Time Associated Comments Diagnosis ORGANISM IDENTIFICATION Today 06/28/2019 9:14 R esults for this AND SUSCEPTIBILITY EST procedure are in the results section. documented in this encounter Results ORGANISM IDENTIFICATION AND SUSCEPTIBILITY (06/28/2019 9:14 EST) [facility] gist Method Time Signature Organism ID Bacillus 07/03/2019 [facility] species, not 15:26 EST [facility] Comment: Susceptibility testing not jose m cated. Specimen Anatomical Collection Method Collection Time Receive d Time (Source) Location / / Volume Laterality Organism URINE / Unknown 06/28/2019 9:14 9 EST 18:55 EST Perry Martini DO MICROBIOLOGY - GENERAL ORDER ARNEL Performing Organization Address City/State/ZIP Code Phon e Number [facility] [address] [place] [address] SERVICES documented in this encounter Visit Diagnoses Diagnosis Encounter for other general examination documented in this encounter Care Teams Building Mechanic Relationship Specialty Start Date End Date Unknown, Provider, PCP - General 06/08/16 documented as of this encounter
--- OUTSIDE RECORDS SUMMARY | 2022-06-26 01:44 | XMS_ITS | Encounter Summary ---
:1950 [place] [address] Care Team Providers Name Role Phone Perry Martini DO Primary Care Provider Encounter Details Date Type Department Care Team Description 03/06/2020 Ancillary Procedure Radiology Library at Eduardo Mccoy [facility] [place] [id number] CARDIOTHORACIC [phone] SURGERY [place], [place] [address] (Wo rk) Social History Tobacco Use Types Packs/Day Years Used Date Smoking Tobacco: Former Smokeless Tobacco: Never Sex Assigned at Date Recorded Not on file documented as of this encounter Plan of Treatment Not on filedocumented as of this encounter Procedures Procedure Name Priority Date/Time Associated Diagnosis Comme nts FILM LIBRARY Routine 03/06/2020 8:03 PM Results f or this STORAGE ONLY CT EDT procedure ar e in CHEST the results section. documented in this encounter Results Film Library- Storage Only CT Chest (03/06/2020 8:03 PM EDT) Specimen (Source) Anatomical Location Collection Method / Collectio n Time Received Time / Laterality Volume Narrative ANGELA ZABALA - 03/06/2020 8:03 PM EDT This exam is auto-finalizing. It's purpo se is for storage only. Kyle Mccoy MD [employer] FILM LIBRARY ORDERABLES Performing Organization Address City/State/ZIP Code Phon e Number [facility] [place], [place] documented in this encounter Visit Diagnoses Not on filedocumented in this encounter Care Teams Gore Maker Relationship Specialty Start Date End Date Perry Martini DO PCP - General 10/10/[address] [place] [address] documented as of this encounter
--- OUTSIDE RECORDS SUMMARY | 2022-06-26 01:44 | XMS_ITS | Encounter Summary ---
:1950 Author Organization [facility] Address [address] [place] [address] Care Team Providers Name Role Phone Perry Martini DO Primary Care Provider Reason for Visit Consultation (Urgent) - Specialty Diagnoses / Procedures Referred By Contact Refer red To Contact Cardiac Surgery Diagnoses Syncope Thoracic aortic aneurysm, without rupture Perry Martini DO [facility] [address] [place], [place] [address] [place] [address] Phone: Fax: Referral ID Status Reason Start Date Expiration Date Visits V isits Requested Authorized [id number] Consult, Test 03/18/2020 09/18/2020 6 6 & Treat PCP Updated and/or Approved Encounter Details Date Type Department Care Team Description 04/19/2020 [facility], Thoracic aortic [facility] MD Ja aneurysm without [facility] [address] [place] CARDIAC SURGERY [address] [place] [address] [phone] Social History Tobacco Use Types Packs/Day Years Used Date Smoking Tobacco: Former Smokeless Tobacco: Never Sex Assigned at Date Recorded Not on file documented as of this encounter Last Filed Vital Signs Vital Sign Reading Time Taken Comments Blood Pressure 115/64 04/19/2020 1:39 PM EDT Pulse 66 04/19/2020 1:39 PM EDT Temperature - - Respiratory Rate - - Oxygen Saturation 97% 04/19/2020 1:39 PM EDT Inhaled Oxygen Concentration - - Weight 107.4 kg (236 lb 11.2 oz) 04/19/2020 1:39 PM EDT Height 185.4 cm (6' 1) 04/19/2020 1:39 PM EDT Body Mass Index 31.23 04/19/2020 1:39 PM EDT documented in this encounter Progress Notes Ja Ortez MD - 04/19/2020 1:40 PM EDT Images from the original note were not included. Cardiac Surgery Consultation Date of Service: 05/07/2020 Time: 1.40 PM Referring Provider: Perry Martini Primary Care Provider: Perry Martini DO Reason for Consultation: Ascending aortic aneurysm History of Present Illness: I am seeing Raúl Renee at the request of Perry Martini for evaluation of an ascending aortic aneurysm Raúl Renee is a 69 y.o. male who presents for evaluation of an incidentally discovered ascending aortic aneurysm. Patient reports that approximately 1 month ago he was admitted to the emergency department for dizziness and shortness of breath. During this evaluation an asending aortic aneurysm was discovered. He denies any episodes of chest pain, back pain, or shortness of breath. His family history is notable for his father who had an abdominal aneurysm and a myocardial infarction. He has nohistory of connective tissue disease Past Medical History: Patient Active Problem List Diagnosis Code ??? Psoriasis L40.9 ??? Screening for cardiovascular condition Z13.6 ??? Abnormal stress test R94.39 ??? Dyspnea R06.00 Past Surgical History: No past surgical history on file. Family History: No family history on file. Social History: Social History Socioeconomic History ??? Marital status: Spouse name: Not on file ??? Number of children: Not on file ??? Years of education: Not on file ??? Highest education level: Not on file Occupational History ??? Not on file Social Needs ??? Financial resource strain: Not on file ??? Food insecurity Worry: Not on file Inability: Not on file ??? Transportation needs Medical: Not on file Non-medical: Not on file Tobacco Use ??? Smoking status: Former Smoker ??? Smokeless tobacco: Never Used Substance and Sexual Activity ??? Alcohol use: Not on file ??? Drug use: Not on file ??? Sexual activity: Not on file Lifestyle ??? Physical activity Days per week: Not on file Minutes per session: Not on file ??? Stress: Not on file Relationships ??? Social connections Talks on phone: Not on file Gets together: Not on file Attends quaker service: Not on file Active member of club or organization: Not on file Attends meetings of clubs or organizations: Not on file Relationship status: Not on file ??? Intimate partner violence Fear of current or ex partner: Not on file Emotionally abused: Not on file Physically abused: Not on file Forced sexual activity: Not on file Other Topics Concern ??? Not on file Social History Narrative ??? Not on file Allergies: No Known Allergies Current Medications: Current Outpatient Medications Ordered in [facility] Medication Sig Dispense Refill ??? lisinopril (Prinivil;Zestril) 5 mg Tablet ??? pravastatin (Pravachol) 10 mg Tablet ??? tamsulosin ER (Flomax) 0.4 mg Capsule ??? triamcinolone (KENALOG) 0.1 % Ointment ??? aspirin 81 mg Tablet, Delayed Release (E.C.) Take by mouth daily. No current [facility]-ordered facility-administered medications on file. Review of Systems: Respiratory: negative for dyspnea on exertion Cardiovascular: negative for chest pain and chest pressure/discomfort All other ROS negative Physical Exam: Last set of vitals: BP 115/64 Pulse 66 Ht 185.4 cm (6' 1) Wt 107.4 kg (236 lb 11.2 oz) SpO2 97% BMI 31.23 kg/m?? General appearance: alert, appears stated age and cooperative Neck: no JVD Lungs: clear to auscultation bilaterally Heart: regular rate and rhythm, S1, S2 normal, no murmur, click, rub or gallop Abdomen: soft, non-tender; bowel sounds normal; no masses, no organomegaly Extremities: extremities normal, atraumatic, no cyanosis or edema Pulses: 2+ and symmetric Neurologic: Grossly normal Diagnostics: (I have independently visualized the following studies): TTE: CTA: 4.5 cm ascending arctic aneurysm Assessment & Plan of Management: Raúl Renee is a 69-year-old man with an incidentally discovered 4.5 cm ascending aortic aneurysm with no hemodynamically significant valve disease. He meets no indications for aortic surgery at this time but will need ongoing surveillance. ?? Return to clinic in 6 months for CTA of the chest ?? Patient will follow-up with cardiology ?? Additionally as per ACC/AHA guidelines I recommend patients with thoracic aortic disease to maintain an LDL of less than 70, an HDL of greater than 50, and blood pressure less than 135 systolic. Thank you for allowing me to participate in the care of Raúl Renee Please do not hesitate to call with questions. Ja Ortez MD, MS director of medical review Section of Cardiac Surgery [facility] Office: [phone] Pager: [phone] documented in this encounter Plan of Treatment Not on filedocumented as of this encounter Visit Diagnoses Diagnosis Thoracic aortic aneurysm without rupture Thoracic aneurysm without mention of rup ture documented in this encounter Care Teams Adjustment Supervisor Relationship Specialty Start Date End Date Perry Martini DO PCP - General 10/10/[address] [place] [address] documented as of this encounter
--- OUTSIDE RECORDS SUMMARY | 2022-06-26 01:44 | XMS_ITS | Encounter Summary ---
:1950 Author Organization [facility] [place] [address] Care Team Providers Name Role Phone ViniPerry benavides Primary Care Provider Encounter Details Date Type Department Care Team Description 05/10/2020 Hospital Encounter Same Day Program at [facility] Screening for cardiovascular condition; Micheline Desouza MD Abnormal stress test; [facility]; [facility] Montes De Oca, unspecified type; [facility] CARDIOLOGY Screening for cardiovascular condition; [place], [place] Abnormal stress test [id number] [phone] Social History Tobacco Use Types Packs/Day Years Used Date Smoking Tobacco: Former Smokeless Tobacco: Never Sex Assigned at Date Recorded Not on file documented as of this encounter Last Filed Vital Signs Vital Sign Reading Time Taken Comments Blood Pressure 144/90 05/10/2020 4:45 PM EDT Pulse 53 05/10/2020 4:00 PM EDT Temperature 36 ??C (96.8 ??F) 05/10/2020 4:40 PM EDT Respiratory Rate 16 05/10/2020 4:45 PM EDT Oxygen Saturation 98% 05/10/2020 4:45 PM EDT Inhaled Oxygen Concentration - - Weight - - Height - - Body Mass Index - - documented in this encounter Discharge Instructions Patient InstructionsBreanna Rowley PA - 05/10/2020 1:59 PM EDT You just had a cardiac cath here at [facility]. We were able to use the right radial artery for your procedure from the right wrist. Please keep this site clean and dry. You may shower and wash with soap andwater but do not soak in the bathtub for 3 days at least. Please do not lift any heavy objects greater than a gallon of milk for the next three days. Please refrain from heavy lifting or exertional exercise for the next 3 days. If you have any bleeding or bruising on the right wrist, please call us orgo to the urgent care or ED. If you start having chest pain, shortness of breath, or difficulty breathing, please go to the ED. AttachmentsThe following attachments cannot be sent through Care Everywhere. Coronary Angiogram: Post-op (Nigerien)documented in this encounter Medications at Time of Discharge Medication Sig Dispensed Refills Start Date End Date lisinopril 0 05/30/2019 (Prinivil;Zestril) 5 mg Tablet pravastatin (Pravachol) 10 0 9 mg Tablet tamsulosin ER (Flomax) 0.4 0 9 mg Capsule triamcinolone (KENALOG) 0.1 0 06/06/20 19 % Ointment aspirin 81 mg Tablet, Take by mouth 0 Delayed Release (E.C.) daily. documented as of this encounter Progress Notes Jesús Vanessa RN - 05/10/2020 5:00 PM EDT Patient alert and oriented, vital signs stable. Reviewed discharge instructions; patient and -Mayelin verbalized understanding. Copy of instruction sheet with contact numbers for questions/concerns with patient and . Pain assessment documented. Patient escorted out of department via wheelchair with CLERICAL AIDE TEACHER to MT. documented in this encounter H&P Notes Breanna Rowley PA - 05/10/2020 10:39 AM EDT Patient Name: Raúl Renee Patient Age: 69 y.o. Birthdate: 1950 Admit date: 05/10/2020 Attending Physician: Jalil Elaine MD [facility] Interventional Cardiology Adult Pre-Procedure H&P Update: Name: Raúl Renee Patient Age: 69 y.o. Birthdate: 1950 Admit date: 05/10/20 Chief Complaint: SOB, presyncope with diaphoresis HPI: Raúl Renee is a 69 y.o. male who was referred by Dr High for evaluation of SOB with presyncope and diaphoresis with radiating L arm and neck pain to [facility] cardiac catheterization lab. A nuclearstress test performed, abnormal with perfusion efects at apex not reversible. ECHO reassuring. LHC has been requested. LV size normal, LV systolic function normal. LV EF 58%. RVSP 25.4. LA and RA normal size. No HD significant valvular lesions seen. AAA 4.4cm. Arch dilated and IVC normal. There have not been any changes in health status since last seen in clinic. No fevers, no chills, no bleeding. Please see recent outpatient clinic note for comprehensive physical and history documentation. Planned Procedure: LHC and CORS Cardiac History: AAA Abnormal stress test Other Pertinent Medical History: Psorasis SOCIAL Hx: Lives in [facility] PHYSICAL: Gen: Alert, comfortable appearing, in NAD HEENT: EOMI, MMM Neck: Supple, no JVD CV: RRR, no M/R/G appreciated, normal S1/S2, PMI not palpated Resp: CTAB, no W/R/R Abd: Soft, NT/ND, +BS Ext: No edema, clubbing, or cyanosis. Warm and well perfused. Neuro: CN grossly intact, moving all extremities Psych: Appropriate affect Pulses: 2+ bilateral radial pulses, right hand janet's test demonstrates adequate reperfusion via ulnar artery alone, 2+ bilateral femoral pulses, no femoral bruit appreciated, 2+ bilateral DP pulses Pre-Sedation Assessment: Previous Sedation/Anesthesia: Y Previous Adverse Reactions: N Alcohol: denies Drugs: denies Mallampati: 1 ASA Class: 3 Sedation Plan: Moderate Sedation, IV conscious sedation with fentanyl and midazolam. Assessment/Plan: Raúl Renee is a 69 y.o. who is here for cardiac cath and invasive hemodynamics in the settingof SOB and presyncope with associated diaphoresis, L arm pain and neck pain. - proceed as planned - consent signed - no apparent contraindication to DAPT, patient denies upcoming or planned procedures/operations, and denies ongoing or recent bleeding events - FULL code - 12-Lead ECG reviewed - Labs Reviewed: yes I have personally discussed the procedure, including benefits and risks, with the patient who agreesto proceed. The indications for the catheterization, the expected benefits, and the possible risks were reviewed in detail with the patient. The potential for , heart attack, stroke, kidney failure, bleeding, allergic reaction, vascular complications and infection as well as other potential complications were reviewed. The possibility of stenting and other percutaneous interventions, with associated risk, was reviewed. The potential need for emergent coronary artery bypass surgery was reviewed. Alternatives were discussed and the patient's questions were answered in full. Following this discussion, the patient consented to the procedure and signed a form attesting to this, which is in the chart NARAYAN Moran Interventional Cardiology 05/10/20 10:39 AM [facility] Pager: [phone] documented in this encounter Miscellaneous Notes Brief Op Note - Prabhu Headley MD - 05/10/2020 1:52 PM EDT Preliminary Cardiac Catheterization Procedure Note: Patient Name: Raúl Renee : [id number] MR#: [id number] Case Date: 05/10/2020 Electron Beam Welder: Surgeon(s) and Role: * Prabhu Headley MD - Primary * Breanna Rowley PA - Fellow Preoperative diagnosis: Screening for cardiovascular condition [Z13.6]Abnormal stress test [R94.39] Postoperative diagnosis: * thoracic anuerysm * Procedure(s) performed: [facility] Coronary angio Access: right radial A time-out was conducted prior to the start of the procedure to verify the correct patient and procedure, procedure location, and all relevant critical information. Preliminary findings: LM: mild LAD: mild LCx: mild RCA: mild LVEDP 15 Full report to follow. Prabhu Headley MD documented in this encounter Plan of Treatment Not on filedocumented as of this encounter Procedures Procedure Name Priority Date/Time Associated Diagnosis Comme [facility] CARDIAC CATHETERIZATION Routine 05/10/2020 1:54 Screening for Results for this PM EDT cardiovascular procedure are in condition the results Abnormal stress test section. Dyspnea, unspecified type EKG 12-LEAD Routine 05/10/2020 11:25 Screening for Results fo r this AM EDT cardiovascular procedure are in condition the results Abnormal stress test section. Dyspnea, unspecified type HC VENIPUNCTURE STAT 05/10/2020 10:04 Results for this AM EDT procedure are i n the results section. HEMOGRAM STAT 05/10/2020 10:04 Results for this AM EDT procedure are i n the results section. DIFFERENTIAL, AUTOMATED STAT 05/10/2020 10:04 Results for this AM EDT procedure are i n the results section. HC CBC,PLT & AUTO DIFF STAT 05/10/2020 10:04 AM EDT documented in this encounter Results CARDIAC CATHETERIZATION (05/10/2020 1:54 PM EDT) Anatomical Region Laterality Modality Other Specimen (Source) Anatomical Location Collection Method / Collectio n Time Received Time / Laterality Volume Narrative 05/10/2020 4:09 PM EDT ?[facility] ? Cardiac Cathete rization/Intervention Report ? Patient Name: Thelma Raúl Bustamante ? Procedure Date: 05/10/2020 ? A #: [id number] ? Primary Physician: Kayode, Prabhu T ? Case #: [id number] ? File Name: [id number] ? Catheterization Order Number: [id number] ? [facility] ? Final Report [place], [place] ? Patient Name: ? Raúl rojas ? ID#: ?[id number] ? : ?1950 ? Procedure Date: ? May 10, 2020 ?Case #: ? [id number] ? Room: ? 6 ? Case Physician: ? Prabhu Headley M.D. ?Start: ?13:36 ? Admission: ??05/10/2020 ? Referring Physician: ??Taylor BOSWELL ? Procedures: ?* Coronary Angiography ?* Left Heart Catheterization ? History ?Raúl Renee is a 69 year old man. The patient's smoking status is ?Former. The patient also has an ascending aortic aneurysm and a thoracic ?abdominal aortic aneurysm. Prio r to the initiation of this procedure, the ?patient was designated as ASA C lass III. The CSHA clinical frailty scale ?is 4: Vulnerable. ? Diagnostic Tests: ?Prior Coronary Angiography: ? LV ejection fraction wit hin 6 months is 58%. ?Stress or Imaging Studies: ? A stress test with SPECT imaging was performed on 03/18/2020 and was ? Positive with Intermedia te results. ?Medications Prior to Procedure: ? Angiotensin Converting E nzyme Inhibitor, Aspirin and Statin. ? Indications for Diagnostic Cath: ?The priority of the diagnostic procedure was Elective. The indication for ?the paint laboratory technician visit is suspected CAD. Chest pain symptom assessment was: ?Atypical Angina. ? Technique: ?A 6 SLFr sheath was inserted in the right radial artery utilizing the ?Seldinger technique. The left c oronary artery was injected utilizing a ?5Fr FREEDOM RADIAL catheter. A 5F r FREEDOM RADIAL catheter was used to inject ?the right coronary artery. Left ventricular pressure was performed with a ?5Fr FREEDOM RADIAL catheter. 5,00 0 units of heparin were administered. A ?total of 100cc of Omnipaque wer e opened, 45cc of Omnipaque were ?administered and 55cc of Omnipa que were wasted. Radiation: Fluoro time ?was 5.3 minutes, dose area prod uct was 32,300 mGYcm2 and air kerma was ?403 mGY. See the case log for a dditional details. ?The patient received the follow ing medications prior to and during the ?procedure: ? Unfractionated Heparin. ? Hemodynamics: ?Left Heart Pressures ? Resting: ? Syst D iast ? EDP ?a ?v ? m ?Ao 120 ?? 58 ?83 ?LV 123 ? 15 ? Coronary Angiography: ?Dominance: Right ?Left Main ? There was mild diffuse ( <=25% stenosis) disease of the entire vessel ? segment of the left main artery. ?Left Anterior Descending ? There was mild diffuse ( <=25% stenosis) disease of the entire vessel ? segment of the left ante rior descending artery (LAD). ?Left Circumflex ? There was mild diffuse ( <=25% stenosis) disease of the entire vessel ? segment of the left circ umflex artery (LCX). ?Right Coronary Artery ? There was mild diffuse ( <=25% stenosis) disease of the entire vessel ? segment of the right cor onary artery (RCA). ? Vascular Access: ?Vascular Access Management: ? Mechanical Compression o f the right radial artery access site was ? performed. ? Conclusions: ?* Nonobstructive coronary arter y disease ? Complications/Events: ?The patient had no complication s during these procedures. ?The attending physician was presen t for the entire procedure. ?Dr. Prabhu Headley M.D. was pres ent during the moderate sedation ?intraservice time as documented by the sedation nurse. ??Case time = 00:14. ?Dr. Prabhu Headley M.D. performe d the coronary angiography and left heart ?catheterization. ? Prabhu Waldronries, M.D. ? Electronically Signed by: Prabhu Machado s, M.D. ? Report Finalized: 05/10/2020 ??16:03 ? Procedure Note Prabhu Headley MD - 05/10/2020Formatt ing of this note might be different from the original. [facility] Cardiac Catheterization/Intervention Re port Patient Name: Raúl Renee Procedure Date: 05/10/2020 A #: [id number] Primary Physician: Prabhu Headley Case #: [id number] File Name: [id number] Catheterization Order Number: [id number] [facility] [employer] [facility] Final Report [place], [place] Patient Name: Raúl Renee ID#: [id number] : 1950 Procedure Date: May 10, 2020 Case #: [id number] Room: 6 Case Physician: Prabhu Headley M.D. art: 13:36 Admission: 05/10/2020 Referring Physician: LEILA HIGH M.D. Procedures: * Coronary Angiography * Left Heart Catheterization History Raúl Renee is a 69 year old man . The patient's smoking status is Former. The patient also has an ascendi ng aortic aneurysm and a thoracic abdominal aortic aneurysm. Prior to the initiation of this procedure, the patient was designated as ASA Class III . The [facility] clinical frailty scale is 4: Vulnerable. Diagnostic Tests: Prior Coronary Angiography: LV ejection fraction within 6 months is 58%. Stress or Imaging Studies: A stress test with SPECT imaging was pe rformed on 03/18/2020 and was Positive with Intermediate results. Medications Prior to Procedure: Angiotensin Converting Enzyme Inhibitor , Aspirin and Statin. Indications for Diagnostic Cath: The priority of the diagnostic procedur e was Elective. The indication for the paint laboratory technician visit is suspected CAD. Ch est pain symptom assessment was: Atypical Angina. Technique: A 6 SLFr sheath was inserted in the rig ht radial artery utilizing the Seldinger technique. The left coronary artery was injected utilizing a 5Fr FREEDOM RADIAL catheter. A 5Fr FREEDOM RADIAL catheter was used to inject the right coronary artery. Left ventric ular pressure was performed with a 5Fr FREEDOM RADIAL catheter. 5,000 units of heparin were administered. A total of 100cc of Omnipaque were opened , 45cc of Omnipaque were administered and 55cc of Omnipaque were wasted. Radiation: Fluoro time was 5.3 minutes, dose area product was 32,300 mGYcm2 and air kerma was 403 mGY. See the case log for additiona l details. The patient received the following medi cations prior to and during the procedure: Unfractionated Heparin. Hemodynamics: Left Heart Pressures Resting: Syst Diast EDP a v m Ao 120 58 83 LV 123 15 Coronary Angiography: Dominance: Right Left Main There was mild diffuse (<=25% stenosis) disease of the entire vessel segment of the left main artery. Left Anterior Descending There was mild diffuse (<=25% stenosis) disease of the entire vessel segment of the left anterior descending artery (LAD). Left Circumflex There was mild diffuse (<=25% stenosis) disease of the entire vessel segment of the left circumflex artery ( LCX). Right Coronary Artery There was mild diffuse (<=25% stenosis) disease of the entire vessel segment of the right coronary artery (R CA). Vascular Access: Vascular Access Management: Mechanical Compression of the right rad ial artery access site was performed. Conclusions: * Nonobstructive coronary artery diseas e Complications/Events: The patient had no complications during these procedures. The attending physician was present for the entire procedure. Dr. Prabhu Headley M.D. was present d uring the moderate sedation intraservice time as documented by the sedation nurse. Case time = 00:14. Dr. Prabhu Headley M.D. performed the coronary angiography and left heart catheterization. Prabhu Headley M.D. Electronically Signed by: Prabhu desouza M.D. Report Finalized: 05/10/2020 16:03 Prabhu Headley MD CARDIAC CATH ORDERABLES EKG 12 Lead (05/10/2020 11:25 AM EDT) Component Value Ref Range Test Analysis Performed Pathologis t Method Time At Signature Ventricular rate 58 BPM MUSE SYSTEM Atrial Rate 58 BPM MUSE SYSTEM P-R Interval 188 ms MUSE SYSTEM QRS Duration 92 ms MUSE SYSTEM Q-T Interval 420 ms MUSE SYSTEM QTC Calculated 412 ms MUSE SYSTEM (Bezet) Calculated P [place] 41 degrees MUSE SYSTEM Calculated R [place] -14 degrees MUSE SYSTEM Calculated T [place] 37 degrees MUSE SYSTEM INTERPRETATION Sinus bradycardia MUSE SY STEM Otherwise normal ECG No previous ECGs available Confirmed by MD Monster, Jalil ([id number]) on 05/10/2020 12:48:08 PM Specimen Anatomical Collection Method Collection Time Receive d Time (Source) Location / / Volume Laterality 05/10/2020 11:25 05/10/2020 AM EDT 12:48 PM EDT Jalil Elaine MD ECG ORDERABLES Performing Organization Address City/State/ZIP Code Phon e Number MUSE SYSTEM Differential, Automated (05/10/2020 10:04 AM EDT) P athologist Signature Neutrophils % 49.5 % [facility] Neutr Abs (ANC) 2.63 1.70 - [facility] 6.10 [facility] x10(3)/[facility] LABORATORY Lymphocytes % 37.2 % [facility] Lymphocytes Abs 2.0 0.9 - 3.2 [facility] x10(3)/[facility] LABORATORY Monocytes % 10.8 % [facility] Monocyte Abs 0.6 0.3 - 0.9 [facility] x10(3)/[facility] LABORATORY Eosinophils % 1.9 % [facility] Eosinophils Abs 0.1 0.0 - 0.4 [facility] x10(3)/[facility] LABORATORY Basophils % 0.6 % [facility] Basophils Abs 0.0 0.0 - 0.1 [facility] x10(3)/[facility] LABORATORY Immature Gran % 0.00 % [facility] Comment: Immature granulocytes(IG's)percentage an d absolute count will include metamyelocytes, myelocytes, and promyelo cytes. Blood smears from CBCs yielding IG's will be scanned manually for concor dance. If this scan disagrees with the automated IG or if promyelocytes are not ed, a manual differential will be performed. Sanjuanita Gran Abs 0.00 0.00 - 0.04 x10(3)/[facility] Specimen Anatomical Collection Method Collection Time Receive d Time (Source) Location / / Volume Laterality Blood specimen 05/10/2020 10:04 0 (specimen) AM EDT 10:14 AM EDT Resulting Agency Comment Spec In Lab Alvaro BUSCH HEMATOLOGY ORDERABLES Performing Organization Address City/State/[place] [address] (ABNORMAL) Hemogram (05/10/2020 10:04 AM EDT) Analysis Performed At Patho logist Time Signature WBC 5.3 4.0 - 9.5 [facility] x10(3)/[facility] LABORATORY RBC 4.46 (L) 4.58 - [facility] 5.54 [facility] x10(6)/[facility] LABORATORY Hemoglobin 14.5 13.7 - [facility] 16.5 gm/dL [facility] Hematocrit 43.3 40.5 - [facility].5 % [facility] MCV 97.1 (H) 82.9 - [facility] 93.1 [facility] LABORATORY MCH 32.5 (H) 27.5 - [facility] 32.[address] [facility] MCHC 33.5 32.0 - [facility] 35.7 gm/dL [facility] Platelets 236 145 - 357 [facility] x10(3)/[facility] LABORATORY RDWSD 43.3 36.0 - [facility] 45.0 [facility] RDWCV 12.1 11.4 - [facility] 13.8 % [facility] MPV 9.5 7.6 - 12.9 [facility] LABORATORY nRBC % Auto 0.0 % [facility] nRBC Abs Auto 0.000 0.000 - [facility] 0.000 [facility] x10(3)/[facility] LABORATORY Specimen Anatomical Collection Method Collection Time Receive d Time (Source) Location / / Volume Laterality Blood specimen 05/10/2020 10:04 0 (specimen) AM EDT 10:14 AM EDT Resulting Agency Comment Spec In Lab Alvaro BUSCH HEMATOLOGY ORDERABLES Performing Organization Address City/State/[place] [address] (ABNORMAL) BMP w/fasting Glucose (05/10/2020 10:04 AM EDT) athologist Signature Glucose 93 65 - 99 [facility] Fasting mg/dL [facility] Comment: ?Fasting* Glucose Interpretive C riteria Normal ?65-99 mg/dL Impaired Fasting glucose ?100-125 mg/dL Consistent with Diabetes Mellitus ? >or= 126 mg/dL *Fasting is defined as no caloric intake for at least 8 hours In the absence of unequivocal hypergly cemia a plasma glucose value of >or= 126 mg/dL should be repeated on a subseq uent day. Diagnosis and Classification of Diabetes Mellitus, Position Statement from the [employer]. ??Diabete s Care, Volume 33, Supplement 1, Aug 2009 BUN 14 10 - 20 mg/dL [facility] Creatinine 1.30 0.80 - 1.50 mg/dL [facility] Sodium 141 135 - 145 mmol/L [facility] Potassium 4.5 3.5 - 5.0 mmol/L [facility] Comment: Please note: ??Patients with WBC >100,00 0 may have falsely elevated Potassium levels. ??For accurate Potassium quantif ication in these patients send serum separator tube (gold top) for subsequent determinations. ??Contact the Clinical Chemistry Laboratory if there are any qu estions. Chloride 107 98 - 107 mmol/L [facility] CO2 26 22 - 31 mmol/L [facility] Anion Gap 8 5 - 15 mmol/L [facility] Calcium 9.3 8.5 - 10.5 mg/dL [facility] Estimated GFR 55 (L) >=60 mL/min/1.73 m?? [facility] Comment: The eGFR was calculated using the CKD-EP I equation. As with all creatinine based estimates of kidney function, eGFR values calculated with the CKD-EPI equation are not accurate in patients wi th acute kidney failure, extremes of body mass or the acutely ill. [email or web address]f eGFR 64 >=60 mL/min/1.73 m?? [facility] Comment: The eGFR was calculated using the CKD-EP I equation. As with all creatinine based estimates of kidney function, eGFR values calculated with the CKD-EPI equation are not accurate in patients wi th acute kidney failure, extremes of body mass or the acutely ill. [email or web address] Specimen Anatomical Collection Method Collection Time Receive d Time (Source) Location / / Volume Laterality Blood specimen 05/10/2020 10:04 0 (specimen) AM EDT 10:14 AM EDT Resulting Agency Comment Spec In Lab Jalil Elaine MD CHEMISTRY ORDERABLES Performing Organization Address City/State/[place] [address] documented in this encounter Visit Diagnoses Diagnosis Screening for cardiovascular condition Screening for other and unspecified card iovascular conditions Abnormal stress test Other nonspecific abnormal cardiovascula r system function study Dyspnea, unspecified type Screening for cardiovascular condition Screening for other and unspecified card iovascular conditions Abnormal stress test Other nonspecific abnormal cardiovascula r system function study Dyspnea Other dyspnea and respiratory abnormalit y Screening for cardiovascular condition Screening for other and unspecified card iovascular conditions Abnormal stress test Other nonspecific abnormal cardiovascula r system function study Dyspnea, unspecified type documented in this encounter Admitting Diagnoses Diagnosis Screening for cardiovascular condition Screening for other and unspecified card iovascular conditions Abnormal stress test Other nonspecific abnormal cardiovascula r system function study Dyspnea Other dyspnea and respiratory abnormalit y documented in this encounter Administered Medications Inactive Administered Medications - up to 3 most recent administrations Medication Order MAR Action Action Date Dose Rate Site sodium chloride 0.9% New Bag 05/10/2020 10:57 AM 200 mL/hr 200 mL /hr infusion EDT 200 mL/hr, Intravenous, CONTINUOUS, Starting on Wed05/10/20 at 1100, Until Wed05/10/20 at 1318, Cath (Day of Procedure) sodium chloride 0.9% infusion New Bag 05/10/2020 2:17 PM EDT 100 mL/hr 100 mL/hr 100 mL/hr, Intravenous, CONTINUOUS, Starting on Wed05/10/20 at 1430, Until Wed05/10/20 at 1629, Recovery (Recovery-Hospital Unit) documented in this encounter Active and Recently Administered Medications Times are shown in EDT. Continuous Medication Order 05/08/2020 05/09/2020 05/10/2020 sodium chloride 0.9% infusion (CANCELED) 1057 (New Bag - Provider: Kimberly Toscano RN) 200 mL/hr, at 200 mL/hr, Intravenous, CO NTINUOUS, Starting Wed05/10/20 at 1100, Until Wed05/10/20 at 1318, Cath (Day of Procedure) sodium chloride 0.9% infusion 14 17 (New Bag - Provider: Zeke Alvarez RN) 100 mL/hr, at 100 mL/hr, Intravenous, CO NTINUOUS, Starting Wed05/10/20 at 1430, Until Wed05/10/20 at 1629, Recovery (Recovery-Hospital Unit) PRN Medication Order 05/08/2020 05/09/2020 05/10/2020 fentaNYL 50 mcg/mL multi-dose injection (CANCELED) 1335 (Given - Provider: Rg Rajan, ROSELYN) ONCE PRN, Starting Wed05/10/20 at 1335, Until Wed05/10/20 at 1356, Intra- Operative (Intra-Procedure), Routine heparin (porcine) 1,000 unit/mL injection (CANCELED) 1338 (Given - Provider: Rg Rajan, RN) ONCE PRN, Starting 05/10/20 at 1338, Until Wed05/10/20 at 1356, Cath (Intra- Procedure), Routine iohexoL (Omnipaque) 350 mg/mL solution (CANCELED) 1355 (Given - Provider: Prabhu Headley MD) ONCE PRN, Starting Wed05/10/20 at 1355, Until Wed05/10/20 at 1356, Cath (Intra- Procedure), Routine midazolam (PF) (VERSED) multi-dose injection (CANCELED) 1334 (Given - Provider: Rg Rajan RN) ONCE PRN, Starting 05/10/20 at 1334, Until Wed05/10/20 at 1356, Cath (Intra- Procedure), Routine nitroGLYcerin 100 mcg/mL intracoronary dilution (CANCELED) 1337 (Given - Provider: Prabhu Headley MD) ONCE PRN, Starting Wed05/10/20 at 1337, Until Wed05/10/20 at 1356, Cath (Intra- Procedure), Routine verapamiL (Isoptin) injection (CANCELED) 1336 (Given - Provider: Prabhu Headley MD) ONCE PRN, Starting 05/10/20 at 1336, Until Wed05/10/20 at 1356, Administer over 2 Minutes, Cath (Intra-Procedure) documented in this encounter Care Teams Mold Yard Supervisor Relationship Specialty Start Date End Date Perry Martini DO PCP - General 10/10/[address] [place] [address] documented as of this encounter
--- OUTSIDE RECORDS SUMMARY | 2022-06-26 01:44 | XMS_ITS | Encounter Summary ---
:1950 Author Organization [facility] [place] [address] Care Team Providers Name Role Phone Perry Martini DO Primary Care Provider Encounter Details Date Type Department Care Team Description 03/06/2020 Ancillary Procedure Radiology Library at Perry Treviño DO [facility] [place] [facility] [address] [phone] (Wo rk) [phone] Social History Tobacco Use Types Packs/Day Years Used Date Smoking Tobacco: Former Smokeless Tobacco: Never Sex Assigned at Date Recorded Not on file documented as of this encounter Plan of Treatment Not on filedocumented as of this encounter Procedures Procedure Name Priority Date/Time Associated Diagnosis Comme [facility] FILM LIBRARY Routine 03/06/2020 12:00 AM Results for this STORAGE ONLY DX EDT procedure ar e in CHEST the results section. documented in this encounter Results Film Library- Storage Only DX Chest (03/06/2020 12:00 AM EDT) Specimen (Source) Anatomical Location Collection Method / Collectio n Time Received Time / Laterality Volume Narrative ANGELA ZABALA - 03/08/2020 10:46 AM EDT This exam is auto-finalizing. It's purpo se is for storage only. Perry Martini DO [facility] FILM LIBRARY ORDERABLES Performing Organization Address City/State/ZIP Code Phon e Number RAD [place], [place] documented in this encounter Visit Diagnoses Not on filedocumented in this encounter Care Teams Statistical Secretary Relationship Specialty Start Date End Date Perry Martini DO PCP - General 10/10/[address] [place] [address] documented as of this encounter
--- OUTSIDE RECORDS SUMMARY | 2022-06-26 01:44 | XMS_ITS | Encounter Summary ---
:1950 [place] [address] Care Team Providers Name Role Phone Perry Martini DO Primary Care Provider Encounter Details Date Type Department Care Team Description 04/25/2020 Orders Only Health Information Technologist Alvaro James, Screening for cardiovascular condition; [facility] Abnormal stress test; [facility] Dyspnea, unspecified type [facility] [address] [place], [place] [phone] (Work) [phone] Social History Tobacco Use Types Packs/Day Years Used Date Smoking Tobacco: Former Smokeless Tobacco: Never Sex Assigned at Date Recorded Not on file documented as of this encounter Plan of Treatment Not on filedocumented as of this encounter Visit Diagnoses Diagnosis Screening for cardiovascular condition Screening for other and unspecified card iovascular conditions Abnormal stress test Other nonspecific abnormal cardiovascula r system function study Dyspnea, unspecified type documented in this encounter Care Teams Banking Management Consulting Manager Relationship Specialty Start Date End Date Perry Martini DO PCP - General 10/10/[address] [place], [place] [address] documented as of this encounter
--- OUTSIDE RECORDS SUMMARY | 2022-06-26 01:44 | XMS_ITS | Encounter Summary ---
:1950 Author Organization [facility] [place] [address] Care Team Providers Name Role Phone Luis Anne MD Primary Care Provider [phone] Reason for Visit Reason Comments Psoriasis Encounter Details Date Type Department Care Team Description 04/02/2011 Office Visit Dermatology Elliot Ashby, Psoriasis (Primary [address]) [address] [place], [place] DERMATOLOGY [id number] [place] [address] [phone] (Wo rk) Social History Tobacco Use Types Packs/Day Years Used Date Smoking Tobacco: Former Sex Assigned at Date Recorded Not on file documented as of this encounter Progress Notes Elliot Ashby MD - 04/02/2011 11:25 AM EDT Problems: 1. Psoriasis, left elbow and right flank, recurrent. 2. New onset psoriasis 04/2009. Raúl follows up after last being seen in 2008. He had a wonderful result he states after the Kenalog injection last visit. Things stayed clear really for a year. During that time he used Neutrogena Moisturizing Cream and when he stopped it, the psoriasis started to come back. 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 The patient is not aware of any family history of psoriasis. Physical examination today reveals two plaques of psoriasis on the left elbow and a single smaller sugar size plaque on the right flank. He does have pitting of all of the nails of his fingers and thumb, subungual hyperkeratotic debris and changes consistent with psoriatic nail disease as well. Otherwise he has no stigmata of psoriasis. Assessment & Plan: Psoriasis, left elbow and right flank. a. After obtaining patient consent, the sites were injected with Kenalog 5mg/cc a total of 3cc utilized between all the different sites. b. Recommended that he again use Neutrogena Moisturizing Cream following resolution of his psoriasis to prolong his remission. c. RTC p.r.n. when it again recurs. Discussed the etiology of psoriasis, the autoimmune nature of this, the fact that it is not contagious and he will not spread it by contact. Cc: Luis Anne MD documented in this encounter Plan of Treatment Not on filedocumented as of this encounter Visit Diagnoses Diagnosis Psoriasis - Primary Other psoriasis documented in this encounter Care Teams Senior Electronics Design Engineer Relationship Specialty Start Date End Date Luis Anne MD PCP - General 07/01/10 10/09/[address] [place] [address] documented as of this encounter
--- OUTSIDE RECORDS SUMMARY | 2022-06-26 01:44 | XMS_ITS | Clinical Summary ---
:1950 Author Organization [facility] [place] [address] Care Team Providers Name Role Phone Perry Martini DO Primary Care Provider Allergies No known active allergies Medications Medication Sig Dispensed Refills Start Date End Date Status aspirin 81 mg Tablet, Take by mouth 0 Active Delayed Release (E.C.) daily. lisinopril 0 05/30/2019 Active (Prinivil;Zestril) 5 mg Tablet pravastatin (Pravachol) 0 05/29/2019 Active 10 mg Tablet tamsulosin ER (Flomax) 0 08/08/2019 Active 0.4 mg Capsule triamcinolone (KENALOG) 0 06/06/2019 Active 0.1 % Ointment Active Problems Problem Noted Date Screening for cardiovascular condition 04/25/2020 Overview: Added automatically from request for nga precious [id number] Abnormal stress test 04/25/2020 Overview: Added automatically from request for nga precious [id number] Dyspnea 04/25/2020 Overview: Added automatically from request for nga precious [id number] Psoriasis 04/02/2011 Social History Tobacco Use Types Packs/Day Years Used Date Smoking Tobacco: Former Smokeless Tobacco: Never Sex Assigned at Date Recorded Not on file Last Filed Vital Signs Vital Sign Reading [...] Mass Index 31.23 04/19/2020 1:39 PM EDT Plan of Treatment Health Maintenance Due Date Last Done Comments Covid-19 Vaccine (#1) 04/01/1951 Hepatitis C Screening 1967 Tdap adult 1968 Tetanus vaccine 1968 Colonoscopy 1994 Zoster vaccine (1 of 2) 1999 Advance Directive 2004 AAA Screen 2014 Pneumoccocal Vaccine: 65+ (1 - PCV) 2014 Influenza (Flu) vaccine (1 of 1 - Influenza standard 04/09/2022 series) Diabetes Screening (HgbA1C or Glucose) Discontinued 0 Insurance Payer Benefit Plan / Subscriber ID Effective Dates Phone Addre ss Type Group MEDICARE MEDICARE PART [id number] 2019-Prese [phone] [place] [address] [facility] [id number] 2014-Presen [address] [place] [address] [address] (Home) [place] [id number] [place] [address] (Work) Advance Directives Latest Code Status on File Code Status Date Activated Date Inactivated Comments Full Code 05/10/2020 1:59 PM Question Answer Comments Does patient have capacity to make decision: Yes Code Status History Code Status Date Activated Date Inactivated Comments Attempt Cardiopulmonary Resuscitation - 05/10/2020 10:45 AM 2019 1:59 PM Inpatient Question Answer Comments Code Status decision made by: Patient Care Teams Plastic Sheets Supervisor Relationship Specialty Start Date End Date Perry Martini DO PCP - General 10/10/[address] [place] [address]
--- OUTSIDE RECORDS SUMMARY | 2022-06-26 01:44 | XMS_ITS | Encounter Summary ---
:1950 Author Organization [facility] [place] [address] Care Team Providers Name Role Phone Perry Martini DO Primary Care Provider Reason for Visit Reason Comments Follow-up Encounter Details Date Type Department Care Team Description 10/10/2014 Office Visit Dermatology at [facility] Elliot Zhong MD Psoriasis [address] [facility] [address] [place] [address] DERMATOLOGY [phone] [place], [place] [address] (Wo rk) Social History Tobacco Use Types Packs/Day Years Used Date Smoking Tobacco: Former Sex Assigned at Date Recorded Not on file documented as of this encounter Patient Instructions Patient InstructionsSindy Harrison LPN - 10/10/2014 8:17 AM EST Images from the original note were not included. [facility] Psoriasis: After Your Visit Your Care Instructions Psoriasis (say woy-BD-pk-esmer) is a long-term skin problem that causes thick, white, silvery, or red patches on the skin. The patches may be small or large, and they occur most often on the knees, elbows, scalp, hands, feet, or lower back. The skin may be scaly. If the condition is severe, your skin can become itchy and tender. Psoriasis also can be embarrassing if the patches are on visible areas. You can treat psoriasis with good care at home and with medicine from your doctor. You may put medicine on your skin and take pills or have shots to stop the redness and swelling. Your doctor also may suggest ultraviolet light treatments. Follow-up care is a kirk part of your treatment and safety. Be sure to make and go to all appointments, and call your doctor if you are having problems. It???s also a good idea to know your test resultsand keep a list of the medicines you take. How can you care for yourself at home? ?? If your doctor prescribes medicine, use it exactly as prescribed. Call your doctor if you think you are having a problem with your medicine. ?? Keep your skin moist. After bathing, put an ointment, cream, or lotion on your skin while it is still damp. This seals in moisture. Use lvor-pyk-jmkdyxw products that your doctor suggests. These mayinclude Cetaphil, Lubriderm, or Eucerin. Petroleum jelly (such as Vaseline) and vegetable shortening(such as Crisco) also work. ?? If you have psoriasis on your scalp, use a mild tar shampoo, such as Neutrogena T/Gel, Polytar, or Zetar. Other scalp lotions, such as Dritho-Scalp, can be applied for several hours and then washed out. Shampoos that contain zinc pyrithione (such as Danex or Head & Shoulders), or selenium sulfide (such as Exsel or Selsun) may also help. ?? Gently soften and remove skin crusts. Put cream on the crusts and then peel off loose crusts. Removing crusts may help creams and lotions get into the skin. However, peel off crusts carefully so that you do not irritate your skin. ?? Follow your doctor's advice for sunlight or ultraviolet light treatment. ?? Avoid harsh skin products, such as those that contain alcohol. ?? Cover your skin in cold weather. ?? Try to prevent sunburn. Although short periods of sun exposure reduce psoriasis in most people, too much sun can damage the skin and cause skin cancer. In addition, sunburns can trigger psoriasis. Use sunscreen on areas of your skin that do not have psoriasis. Make sure the sunscreen blocks ultraviolet rays (both UVA and UVB) and has a sun protection factor (SPF) of at least 15. Use it every day, even when it is cloudy. Some doctors may recommend a higher SPF, such as 30. ?? Take care to avoid accidents such as cutting or scraping your skin. An injury to the skin can cause psoriasis patches to form anywhere on the body, including the area of the injury. ?? Avoid tight shoes, clothing, watchbands, and hats. These may irritate your skin. ?? Try to control stress and anxiety. They may cause psoriasis to appear suddenly or can make symptoms worse. ?? Use a vaporizer or humidifier to add moisture to your bedroom. Follow the directions for cleaningthe machine. ?? Seek support from family and friends. Talk to a counselor or other professional if you feel sad about your condition and need more help. When should you call for help? Call your doctor now or seek immediate medical care if: ?? You have signs of infection, such as: ?? Increased pain, swelling, warmth, or redness. ?? Red streaks leading from the area. ?? Pus draining from the area. ?? A fever. Watch closely for changes in your health, and be sure to contact your doctor if: ?? Your skin is more red and irritated than usual, especially if you also have another illness. ?? You need to talk to someone about how you are coping with the illness. Where can you learn more? Visit our health information library at [email or web address]?[email or web address] Bu F?rsato You can also view health information on [employer], your personal patient account. Log in or sign up today. Enter U759 in the search box to learn more about Psoriasis: After Your Visit. ?? [id number] [employer]. Care instructions adapted under license by [facility]. This care instruction is for use with your licensed healthcare professional. If you have questionsabout a medical condition or this instruction, always ask your healthcare professional. [employer] disclaims any warranty or liability for your use of this information. Content Version: 10.3.729102; Current as of: October 18, 2013 documented in this encounter Progress Notes Elliot Ashby MD - 10/10/2014 8:40 AM EST Problems: 1. Followup psoriasis, onset April 2009. 2. Status post injection, left elbow/forearm, October 2013 with nine months of remission, now recurrent. Raúl follows up and since July 2014 has had recurrence of his psoriasis. It is on his left elbow, but it has not come back on his right thigh. He has a new spot on his right posterior flank. Physical examination reveals a plaque of psoriasis over the left elbow, extending onto the left forearm a little bit, and a course spot on his right flank. The right lateral thigh is clear. Assessment and Plan: Psoriasis. a. I would recommend the patient hold triamcinolone cream and instead begin clobetasol cream, applying b.i.d. to affected areas. b. Return to clinic in another month for repeat check. c. Consider a repeat intralesional Kenalog injection at that time. COPY: Perry Martini D.O. documented in this encounter Plan of Treatment Not on filedocumented as of this encounter Visit Diagnoses Diagnosis Psoriasis Other psoriasis documented in this encounter Care Teams Ic Designer Standard Cells Relationship Specialty Start Date End Date Perry Martini DO PCP - General 10/10/[address] [place] [address] documented as of this encounter
--- OUTSIDE RECORDS SUMMARY | 2022-06-26 01:44 | XMS_ITS | Encounter Summary ---
:1950 Author Organization [facility] [place] [address] Care Team Providers Name Role Phone Perry Martini DO Primary Care Provider Encounter Details Date Type Department Care Team Description 10/10/2013 Office Visit Dermatology at Elliot Ashby Psorias is (Primary [place] Dx) [address] [facility] [address] DERMATOLOGY [place], [place] [id number] [phone] Social History Tobacco Use Types Packs/Day Years Used Date Smoking Tobacco: Former Sex Assigned at Date Recorded Not on file documented as of this encounter Progress Notes Elliot Ashby MD - 10/10/2013 9:26 AM EST Problems: 1. Followup psoriasis, stable plaque, elbow/forearm for steroid injection. 2. New-onset psoriasis, April 2009. Raúl follows up and has been doing well. He has noted a new site on the right lateral thigh. It has been since October 2012 that I saw him last. 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 Physical examination reveals plaques that are contiguous over the left elbow and in a linear fashion, and one quarter-sized plaque on the right lateral thigh. Assessment and Plan: Psoriasis. a. After obtaining informed patient consent, the sites were injected with Kenalog 5 mg/mL; a total of 6 mL were injected. b. Continue with triamcinolone 0.1% cream; 80 grams dispensed with five refills to apply b.i.d. p.r.n. c. Return to clinic p.r.n. for recurrence of psoriasis. COPY: Luis Anne M.D. documented in this encounter Plan of Treatment Not on filedocumented as of this encounter Visit Diagnoses Diagnosis Psoriasis - Primary Other psoriasis documented in this encounter Care Teams Staff Development Coordinator Rn Relationship Specialty Start Date End Date Perry Martini DO PCP - General 10/10/13 [address] [place] [address] documented as of this encounter
--- OUTSIDE RECORDS SUMMARY | 2022-06-26 01:44 | XMS_ITS | Encounter Summary ---
:1950 Author Organization [facility] [place] [address] Care Team Providers Name Role Phone Luis Anne MD Primary Care Provider [phone] Reason for Visit Reason Comments Skin Check Encounter Details Date Type Department Care Team Description 10/19/2012 Office Visit Dermatology Elliot Ashby, Psoriasis (Primary [address]) [address] [place], [place] DERMATOLOGY [id number] [place] [address] [phone] (Wo rk) Social History Tobacco Use Types Packs/Day Years Used Date Smoking Tobacco: Former Sex Assigned at Date Recorded Not on file documented as of this encounter Progress Notes Elliot Ashby MD - 10/19/2012 8:26 AM EDT Problems: 1. Followup psoriasis, stable plaque, left extensor elbow/forearm, for steroid injection. 2. New-onset psoriasis, April 2009. Raúl follows up and is doing well. It has been since September since I saw him last. He has a new spot on his left elbow that recurred. He likes the triamcinolone cream, and that has helped him. He got off track and was not using it for a while but would like to get back on track using it. 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 Physical examination reveals three plaques on the left elbow, two quarter size and one half-dollar size, as present on the accompanying flow sheet diagram. Assessment and Plan: Psoriasis on the left extensor forearm/left elbow. a. After obtaining informed patient consent, the sites were injected with Kenalog 5 mg/mL; a total of 4 mL was injected. b. Continue triamcinolone 0.1% cream, 80 grams dispensed with three refills. c. Return to the clinic p.r.n. for recurrence of psoriasis. Copy: Luis Anne M.D. documented in this encounter Plan of Treatment Not on filedocumented as of this encounter Visit Diagnoses Diagnosis Psoriasis - Primary Other psoriasis documented in this encounter Care Teams Service Restorer Emergency Relationship Specialty Start Date End Date Luis Anne MD PCP - General 07/01/10 10/09/[address] [place] [address] documented as of this encounter
--- OUTSIDE RECORDS SUMMARY | 2022-06-26 01:44 | XMS_ITS | Encounter Summary ---
:1950 Author Organization [facility] [place] [address] Care Team Providers Name Role Phone Perry Martini DO Primary Care Provider Encounter Details Date Type Department Care Team Description 05/10/2020 Surgery It Manager Prabhu Kendrick, CARDIAC CATHETERIZATION [facility] [place] [address] CARDIOLOGY DEPT. [phone] [place] [id number] (Wo rk) Social History Tobacco Use Types Packs/Day Years Used Date Smoking Tobacco: Former Smokeless Tobacco: Never Sex Assigned at Date Recorded Not on file documented as of this encounter Last Filed Vital Signs Vital Sign Reading Time Taken Comments Blood Pressure 147/79 05/10/2020 10:34 AM EDT Pulse 63 05/10/2020 10:34 AM EDT Temperature 36.6 ??C (97.9 ??F) 05/10/2020 10:34 AM EDT Respiratory Rate 16 05/10/2020 10:34 AM EDT Oxygen Saturation 100% 05/10/2020 10:34 AM EDT Inhaled Oxygen Concentration - - Weight - - Height - - Body Mass Index - - documented in this encounter Discharge Instructions Patient InstructionsBreanna Rowley PA - 05/10/2020 1:59 PM EDT You just had a cardiac cath here [place] [facility] We were able to use the right [...] sent through Care Everywhere. Coronary Angiogram: Post-op (Citizen Of [place])documented in this encounter Medications at Time of [...] escorted out of department via wheelchair with JOINERY MACHINIST to [place]. documented in this encounter H&P Notes Breanna Rowley PA - 05/10/2020 10:39 AM EDT Patient Name: Raúl Renee Patient Age: 69 y.o. Birthdate: 1950 Admit date: 05/10/2020 Attending Physician: Jalil Elaine MD [facility] Interventional Cardiology Adult Pre-Procedure H&P Update: Name: Raúl Renee Patient Age: 69 y.o. Birthdate: 1950 Admit date: 05/10/20 Chief Complaint: SOB, presyncope with diaphoresis HPI: Raúl Renee is a 69 y.o. male who was referred by Dr High for evaluation of SOB with presyncope and diaphoresis with radiating L arm and neck pain to [facility] cardiac catheterization lab. A nuclearstress test performed, [...] Medical History: Psorasis SOCIAL Hx: Lives in [facility] PHYSICAL: Gen: Alert, comfortable appearing, in NAD [...] NARAYAN Moran Interventional Cardiology 05/10/20 10:39 AM [facility] Pager: [phone] documented in this encounter Miscellaneous Notes Brief Op Note - Prabhu Headley MD - 05/10/2020 1:52 PM EDT Preliminary Cardiac Catheterization Procedure Note: Patient Name: Raúl Renee : [id number] MR#: [id number] Case Date: 05/10/2020 It Security Architect: Surgeon(s) and Role: * Prabhu Headley MD - Primary * Breanna Rowley PA - Fellow Preoperative diagnosis: Screening for cardiovascular condition [Z13.6]Abnormal stress test [R94.39] Postoperative diagnosis: * thoracic anuerysm * Procedure(s) performed: [facility] Coronary angio Access: right radial A [...] Name Priority Date/Time Associated Diagnosis Comme nts CARDIAC CATHETERIZATION Routine 05/10/2020 1:54 Screening for [...] Laterality Volume Narrative 05/10/2020 4:09 PM EDT ?[facility] ? Cardiac Cathete rization/Intervention Report ? Patient Name: Raúl Renee. ? Procedure Date: 05/10/2020 ? A #: [id number] ? Primary Physician: Kayode, Prabhu T ? Case #: [id number] ? File Name: [id number] ? Catheterization Order Number: [id number] ? [facility] ? Final Report [place], [place] ? Patient Name: ? Raúl rojas ? ID#: ?[id number] ? : ?1950 ? Procedure Date: ? [...] procedure was Elective. The indication for ?the lab aide visit is suspected CAD. Chest pain symptom [...] angiography and left heart ?catheterization. ? Prabhu Blood Kayode, M.D. ? Electronically Signed by: Prabhu Machado s, M.D. ? Report Finalized: 05/10/2020 ??16:03 ? Procedure Note Prabhu Headley MD - 05/10/2020Formatt ing of this note might be different from the original. [facility] Cardiac Catheterization/Intervention Re port Patient Name: Raúl Renee Procedure Date: 05/10/2020 A #: [id number] Primary Physician: Prabhu Headley Case #: [id number] File Name: [id number] Catheterization Order Number: [id number] [facility] Final Report [place], [place] Patient Name: Raúl Renee ID#: [id number] : 1950 Procedure Date: May 10, 2020 [...] designated as ASA Class III . The CSHA clinical frailty scale is 4: Vulnerable. Diagnostic [...] e was Elective. The indication for the lab aide visit is suspected CAD. Ch est pain [...] 412 ms MUSE SYSTEM (Bezet) Calculated P [place] 41 degrees MUSE SYSTEM Calculated R [place] -14 degrees MUSE SYSTEM Calculated T [place] 37 degrees MUSE SYSTEM INTERPRETATION Sinus bradycardia MUSE SY STEM Otherwise normal ECG No previous ECGs available Confirmed by MD Monster, Jalil ([id number]) on 05/10/2020 12:48:08 PM Specimen Anatomical Collection Method Collection Time Receive d Time (Source) Location / / Volume Laterality 05/10/2020 11:25 05/10/2020 AM EDT 12:48 PM EDT Jalil Elaine MD ECG ORDERABLES Performing Organization Address City/State/ZIP Code Phon e Number MUSE SYSTEM Differential, Automated (05/10/2020 10:04 AM EDT) P athologist Signature Neutrophils % 49.5 % [facility] LABORATORY Neutr Abs (ANC) 2.63 1.70 - [facility] 6.10 [facility] x10(3)/[facility] LABORATORY Lymphocytes % 37.2 % [facility] Lymphocytes Abs 2.0 0.9 - 3.2 [facility] x10(3)/[facility] LABORATORY Monocytes % 10.8 % [facility] Monocyte Abs 0.6 0.3 - 0.9 [facility] x10(3)/[facility] LABORATORY Eosinophils % 1.9 % [facility]ORY Eosinophils Abs 0.1 0.0 - 0.4 [facility] x10(3)/[facility] LABORATORY Basophils % 0.6 % [facility]ORY Basophils Abs 0.0 0.0 - 0.1 [facility] x10(3)/[facility] LABORATORY Immature Gran % 0.00 % [facility] Comment: Immature granulocytes(IG's)percentage an d absolute count will include metamyelocytes, myelocytes, and promyelo cytes. Blood smears from CBCs yielding IG's will be scanned manually for concor dance. If this scan disagrees with the automated IG or if promyelocytes are not ed, a manual differential will be performed. [place] Gran Abs 0.00 0.00 - 0.04 x10(3)/[facility] LABORATORY Specimen Anatomical Collection Method Collection Time Receive d Time (Source) Location / / Volume Laterality Blood specimen 05/10/2020 10:04 0 (specimen) AM EDT 10:14 AM EDT Resulting Agency Comment Spec In Lab Alvaro BUSCH HEMATOLOGY ORDERABLES Performing Organization Address City/State/[place] [address] (ABNORMAL) Hemogram (05/10/2020 10:04 AM EDT) Analysis Performed At Patho logist Time Signature WBC 5.3 4.0 - 9.5 [facility] x10(3)/[facility] LABORATORY RBC 4.46 (L) 4.58 - [facility] 5.54 [facility] x10(6)/[facility] LABORATORY Hemoglobin 14.5 13.7 - [facility] 16.[facility] gm/dL [facility] LABORATORY Hematocrit 43.3 40.5 - [facility] SILVIA 48.5 % [facility] LABORATORY MCV 97.1 (H) 82.9 - [facility] 93.1 [facility] LABORATORY MCH 32.5 (H) 27.5 - [facility]IL[facility]IA 32.1 pg [facility] LAB[facility] MCHC 33.5 32.0 - [facility] 35.7 gm/dL [facility] Platelets 236 145 - 357 [facility] x10(3)/[facility] LABORATORY RDWSD 43.3 36.0 - [facility]IA 45.0 [facility] LABORATORY RDWCV 12.1 11.4 - [facility] 13.8 % [facility] LABORATORY MPV 9.5 7.6 - 12.9 [facility] LABORATORY nRBC % Auto 0.0 % [facility] LABORATORY nRBC Abs Auto 0.000 0.000 - [facility] 0.000 [facility] x10(3)/[facility] LABORATORY Specimen Anatomical Collection Method Collection Time Receive d Time (Source) Location / / Volume Laterality Blood specimen 05/10/2020 10:04 0 (specimen) AM EDT 10:14 AM EDT Resulting Agency Comment Spec In Lab Alvaro BUSCH HEMATOLOGY ORDERABLES Performing Organization Address City/State/[place] [address] (ABNORMAL) BMP w/fasting Glucose (05/10/2020 10:04 AM EDT) athologist Signature Glucose 93 65 - 99 [facility] Fasting mg/dL [facility] Comment: ?Fasting* Glucose Interpretive C riteria [...] of Diabetes Mellitus, Position Statement from the [place] [employer]. ??Diabete s Care, Volume 33, Supplement 1, Aug 2009 BUN 14 10 - 20 mg/dL [facility] LAB[facility]ORY Creatinine 1.30 0.80 - 1.50 mg/dL [facility] LABORATORY Sodium 141 135 - 145 mmol/L [facility] Potassium 4.5 3.5 - 5.0 mmol/L [facility] Comment: Please note: ??Patients with WBC >100,00 0 may have falsely elevated Potassium levels. ??For accurate Potassium quantif ication in these patients send serum separator tube (gold top) for subsequent determinations. ??Contact the Clinical Chemistry Laboratory if there are any qu estions. Chloride 107 98 - 107 mmol/L [facility]ORY CO2 26 22 - 31 mmol/L [facility] Anion Gap 8 5 - 15 mmol/L [facility] Calcium 9.3 8.5 - 10.5 mg/dL [facility] LAB[facility] Estimated GFR 55 (L) >=60 mL/min/1.73 m?? [facility] Comment: The eGFR was calculated using the CKD-EP I equation. As with all creatinine based estimates of kidney function, eGFR values calculated with the CKD-EPI equation are not accurate in patients wi th acute kidney failure, extremes of body mass or the acutely ill. [email or web address] eGFR 64 >=60 mL/min/1.73 m?? [facility] Comment: The eGFR was calculated using the CKD-EP I equation. As with all creatinine based estimates of kidney function, eGFR values calculated with the CKD-EPI equation are not accurate in patients wi th acute kidney failure, extremes of body mass or the acutely ill. [email or web address] Specimen Anatomical Collection Method Collection Time Receive d Time (Source) Location / / Volume Laterality Blood specimen 05/10/2020 10:04 0 (specimen) AM EDT 10:14 AM EDT Resulting Agency Comment Spec In Lab Jalil Elaine MD CHEMISTRY ORDERABLES Performing Organization Address City/State/[place] [address] documented in this encounter [...] MAR Action Action Date Dose Rate Site fentaNYL 50 mcg/mL multi-dose Given 05/10/2020 1:35 PM EDT 25 mc g injection ONCE PRN, Starting on Wed05/10/20 at 1335, Until Wed05/10/20 at 1356, Intra-Operative (Intra-Procedure), Routine heparin (porcine) 1,000 unit/mL Given 05/10/2020 1:38 PM EDT 5,0 00 Units injection ONCE PRN, Starting on Wed05/10/20 at 1338, Until Wed05/10/20 at 1356, Cath (Intra-Procedure), Routine iohexoL (Omnipaque) 350 mg/mL solution Given 05/10/2020 1:55 PM EDT 45 mLs ONCE PRN, Starting on Wed05/10/20 at 1355, Until Wed05/10/20 at 1356, Cath (Intra-Procedure), Routine midazolam (PF) (VERSED) multi-dose injec tion Given 05/10/2020 1:34 PM EDT 1 mg ONCE PRN, Starting on Wed05/10/20 at 1334, Until Wed05/10/20 at 1356, Cath (Intra-Procedure), Routine nitroGLYcerin 100 mcg/mL intracoronary Given 05/10/2020 1:37 PM EDT 150 mcg dilution ONCE PRN, Starting on Wed05/10/20 at 1337, Until Wed05/10/20 at 1356, Cath (Intra-Procedure), Routine sodium chloride 0.9% infusion New Bag 05/10/2020 10:57 AM EDT 200 mL/hr 200 mL/hr 200 mL/hr, Intravenous, CONTINUOUS, Starting on Wed05/10/20 at 1100, Until Wed05/10/20 at 1318, Cath (Day of Procedure) sodium chloride 0.9% infusion New Bag 05/10/2020 2:17 PM EDT 100 mL/hr 100 mL/hr 100 mL/hr, Intravenous, CONTINUOUS, Starting on Wed05/10/20 at 1430, Until Wed05/10/20 at 1629, Recovery (Recovery-Hospital Unit) verapamiL (Isoptin) injection Given 05/10/2020 1:36 PM EDT 2.5 mg ONCE PRN, Starting on Wed05/10/20 at 1336, Until Wed05/10/20 at 1356, Administer over 2 Minutes, Cath (Intra-Procedure) documented in this encounter Active and Recently Administered Medications Times are shown in EDT. Continuous Medication Order 05/08/2020 05/09/2020 05/10/2020 sodium chloride 0.9% infusion (CANCELED) 1057 (New Bag - Provider: Kmiberly Toscano, ROSELYN) 200 mL/hr, at 200 mL/hr, Intravenous, CO NTINUOUS, Starting Wed05/10/20 at 1100, Until Wed05/10/20 at 1318, Cath (Day of Procedure) sodium chloride 0.9% infusion 14 17 (New Bag - Provider: Zeke Alvarez, ROSELYN) 100 mL/hr, at 100 mL/hr, Intravenous, CO NTINUOUS, Starting Wed05/10/20 at 1430, Until Wed05/10/20 at 1629, Recovery (Recovery-Hospital Unit) PRN Medication Order 05/08/2020 05/09/2020 05/10/2020 fentaNYL 50 mcg/mL multi-dose injection (CANCELED) 1335 (Given - Provider: Rg Rajan RN) ONCE PRN, Starting Wed05/10/20 at 1335, Until Wed05/10/20 at 1356, Intra- Operative (Intra-Procedure), Routine heparin (porcine) 1,000 unit/mL injection (CANCELED) 1338 (Given - Provider: Rg Rajan RN) ONCE PRN, Starting Wed05/10/20 at 1338, Until Wed05/10/20 at 1356, Cath (Intra- Procedure), Routine iohexoL (Omnipaque) 350 mg/mL solution (CANCELED) 1355 (Given - Provider: Prabhu Headley MD) ONCE PRN, Starting Wed05/10/20 at 1355, Until Wed05/10/20 at 1356, Cath (Intra- Procedure), Routine midazolam (PF) (VERSED) multi-dose injection (CANCELED) 1334 (Given - Provider: Rg Rajan RN) ONCE PRN, Starting Wed05/10/20 at 1334, Until Wed05/10/20 at 1356, Cath (Intra- Procedure), Routine nitroGLYcerin 100 mcg/mL intracoronary dilution (CANCELED) 1337 (Given - Provider: Prabhu Headley MD) ONCE PRN, Starting Wed05/10/20 at 1337, Until Wed05/10/20 at 1356, Cath (Intra- Procedure), Routine verapamiL (Isoptin) injection (CANCELED) 1336 (Given - Provider: Prabhu Headley MD) ONCE PRN, Starting Wed05/10/20 at 1336, Until Wed05/10/20 at 1356, Administer over 2 Minutes, Cath (Intra-Procedure) documented in this encounter Care Teams Search Strategist Relationship Specialty Start Date End Date Perry Martini DO PCP - General 10/10/[address] [place] [address] documented as of this encounter
--- OUTSIDE RECORDS SUMMARY | 2022-06-26 01:44 | XMS_ITS | Encounter Summary ---
:1950 Author Organization [facility] [place] [address] Care Team Providers Name Role Phone Perry Martini DO Primary Care Provider Reason for Visit Reason Comments Psoriasis Encounter Details Date Type Department Care Team Description 08/28/2019 Office Visit Dermatology at [facility], History of psoriasis Vince [address] [facility] [address] [facility] Jose De Jesus B DERMATOLOGY [place], [place] [id number] [phone] Social History Tobacco Use Types Packs/Day Years Used Date Smoking Tobacco: Former Smokeless Tobacco: Never Sex Assigned at Date Recorded Not on file documented as of this encounter Progress Notes [facility] MD - 08/28/2019 11:30 AM EST Problem: 1. Followup psoriasis, onset April 2009. 2. Initiated clobetasol on October 11, 2014. 3. New skin lesion of concern Raúl follows up and noted a skin tag-like lesion on the right oriental orthodox. He was concerned about this and while he was waiting for 2 days dermatology appointment it fell off. He would like me to check the site. He also brings me up-to-date on some family challenges: His youngest daughter recently of metastatic colon CA. He himself has had both shoulders replaced by Dr. Alonso and has had a wonderful recovery. 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 He enjoys that vehicle recovery very much. He likes staying busy and does not plan on retiring soon. The age of 69 coming up soon is a big milestone for him but hetries not to dwell on it too much. Physical examination reveals a pleasant 68-year-old gentleman who has benign examination of the baldparietal scalp the face and cheeks. He has benign melanocytic nevi no evidence of any malignant or premalignant lesions. He does not desire examination of the elbows or knees and states that his psoriasis continues to come and go but goes into 2 months of remission after using clobetasol cream twice daily briefly to affected areas Assessment plan: Benign skin examination 1. Patient reassured about his benign skin examination 2. Recommend that I see him back as needed for new lesion/concerns Psoriasis, currently in remission 1. Patient asked about newer therapies for psoriasis and I explained there is still not a cure 2. Is best to use the simplest and safest treatment that will control his psoriasis for him and thatwould still be clobetasol cream topically 3. Would not recommend advancing to methotrexate or other oral therapies nor to a biologic. CC: Perry Martini documented in this encounter Plan of Treatment Not on filedocumented as of this encounter Visit Diagnoses Diagnosis History of psoriasis Personal history of diseases of skin and subcutaneous tissue documented in this encounter Care Teams Ecommerce Analyst Relationship Specialty Start Date End Date Perry Martini DO PCP - General 10/10/[address] [place] [address] documented as of this encounter
[2022-06-26 13:07] LABS: Anion Gap 5.9 mmol/L (3-11); BUN 21 mg/dL (7-18); CO2 28.1 mmol/L (21.0-32.0); CREATININE 1.4 mg/dL (0.70-1.30); Calcium 8.6 mg/dL (8.5-10.1); Calculated LDL 61 mg/dL (<100); Chloride 105 mmol/L (98-107); Cholesterol 121 mg/dL (<200); Glucose 94 mg/dL (74-106); HDL Cholesterol 46 mg/dL (40-60); Potassium 4.3 mmol/L (3.5-5.1); Sodium 139 mmol/L (136-145); Triglyceride 74 mg/dL (<150)
== END 2022-06-26 01:38 | disposition home or self-care (01) ==
LOC: LOS 01:37
PROVIDERS: PCP Family Medicine; Visit Provider Family Medicine
DX: I10 Essential (primary) hypertension (principal); Z13.6 Encounter for screening for cardiovascular disorders
CPT/HCPCS: 36415; 80048; 80061

== ENCOUNTER → 2022-08-04 07:54 | Outpatient (BNVA) | payer MEDICARE, OTHER, SELFPAY | PROVIDERS: PCP Family Medicine; Referring Provider Family Medicine; Visit Provider Urology | DX: Z87.440 Personal history of urinary (tract) infections (principal); N40.1 Benign prostatic hyperplasia with lower urinary tract symptoms; R35.0 Frequency of micturition; N32.3 Diverticulum of bladder | CPT/HCPCS: 99213 ==

== ENCOUNTER 2022-11-18 00:49 | Outpatient (CLI) | payer MEDICARE, OTHER, SELFPAY ==
--- NOTE | 2022-11-18 07:31 | DI.US_ITS ---
APPROVED REPORT EXAM: Comprehensive 2D, Doppler, and color-flow Echocardiogram Patient Location: Out-Patient Game Operator: Chris Hicks RDMS, RVT Indications: f/u ascending aorta aneurysm, HTN Other Information Study Quality: Adequate Conclusion Normal left ventricular wall thickness and chamber size. Ejection fraction is 55 to 60%. Wall motio n is normal Normal right ventricular size and systolic function Both atria are normal in size Aortic valve is trileaflet and mildly sclerotic with mild regurgitation Dilated ascending aorta measuring 4.35 cm. Aortic arch measures 3.62 cm Wall motion Left Ventricle The left ventricle is normal size. The left ventricular systolic function is normal. The left ventric ular ejection fraction is within the normal range. There is normal left ventricular wall thickness. T here is normal LV segmental wall motion. There is no ventricular septal defect visualized. LVEF is 55 -60%. Right Ventricle The right ventricle is normal size. The right ventricular systolic function is normal. The RVSP is 27 .9 mmHg. Atria The left atrium size is normal. The right atrium size is normal. The interatrial septum is intact wit h no evidence for an atrial septal defect. Aortic Valve Aortic valve is trileaflet. The aortic valve is mildly sclerotic There is no aortic valvular stenosis . Mild aortic regurgitation. Mitral Valve The mitral valve is normal in structure. No evidence of mitral valve stenosis. Trace mitral regurgita tion. Tricuspid Valve The tricuspid valve is normal in structure. There is no tricuspid valve stenosis. Mild tricuspid reg urgitation. Pulmonic Valve The pulmonary valve is normal in structure. There is no pulmonic valvular stenosis. Trace pulmonic re gurgitation. Great Vessels The aortic root is normal in size. The ascending aorta is moderately dilated. Aortic arch is normal i n caliber. IVC is normal in size and collapses >50% with inspiration. Pericardium There is no pericardial effusion. 2D Dimensions IVSD d PLAX 0.90 cm M: 0.6-1.2 LV Vol A2C d MOD 153.2 mL LVPW d PLAX 0.79 cm M: 0.6 - 1.2 LV Vol A4C d MOD 116.5 mL LVID d PLAX 4.77 cm M: 4.2 - 5.8 LA vol/ BSA A2C s A-L 20.1 mL/m2 LVDs 3.20 cm M: 2.5 - 4.0 LA vol/ BSA A4C s A-L 14.0 mL/m2 Ao Root d 3.61 cm M: 3.1 - 3.7 LA Vol/ BSA Biplane s A-L 17.3 mL/m2 Ao Asc Diam d 4.34 cm M: 2.6 - 3.4 LA Area A4C s MOD 13.64 cm2 LV EF Teichholz 60.0 % LA Area A2C s MOD 16.86 cm2 LVEF (Dailey's) 55.67 % M: 52 - 72 LV EF A4C MOD 58.2 % LV Volume 96.12 mL M: 62 - 150 LV EF A2C MOD 56.0 % LV Volume Index 42.53 mL/m2 M: 34 - 74 LV EF Biplane MOD 55.7 % LV Vol Biplane MOD 133.2 mL SV 74.16 mL FS 31.90 % SV Index 32.86 mL/m2 M-Mode TAPSE 1.71 cm (M/F) >1.7 LV Diastology MV E' medial 0.073 (>0.07 m/s) E/A Ratio 0.9 LV E/e MED 10.80 (<14) MV E Vmax 0.79 (0.4-1.3 m/s) MV E' lateral 0.122 (>0.1 m/s) MV A Vmax 0.85 (0.4-1.3 m/s) LV E/e LAT 6.50 (<14) MV E/A Ratio 0.88 MV E/E' medial 10.83 MV E/E' lateral 6.50 Aortic Valve LVOT Area 3.18 cm2 AoV Area Vmax 2.30 cm2 LVOT Vmax 1.02 m/s AoV Area/ BSA (Vmax) 1.02 cm2/m2 LVOT Mean Jac. 0.68 m/s PAYTON Mean Jac. 1.99 cm2 LVOT Peak Grad 4.1 mmHg PAYTON Mean Jac. Index 0.88 cm2/m2 LVOT Mean Grad 2.1 mmHg AR DT 2584 msec LVOT VTI 0.234 m AR PHT 749 msec LVOT Diam s 2.00 cm AoV Vmax 1.41 m/s Velocity Ratio 0.72 AoV Mean Jac. 1.09 m/s AoV Peak Grad 7.9 mmHg LVOT SV 74.35 mL AoV Mean Grad 5.1 mmHg AoV VTI 0.369 m AoV Area VTI 2.01 cm2 AoV Area/ BSA (VTI) 0.89 cm/m2 Mitral Valve MV DT 255 (160-240 msec) MV PHT 74 msec MV Area PHT 2.98 cm2 MV VTI 0.315 m MV Area VTI 2.36 (4.0-6.0 cm2) Pulmonary Valve PV Vmax 0.83 (0.5-1.5 m/s) RVOT Peak Gr. 1.03 mmHg PV Peak Grad 2.8 mmHg RVOT Mean Gr. 0.55 mmHg PV Mean Grad 1.9 mmHg RVOT VTI 0.128 m PV VTI 0.218 m RVOT Vmax 0.51 m/s Tricuspid Valve TR Peak Grad 24.8 mmHg TR Vmax 2.49 m/s RA Pressure 3.00 mmHg RVSP (TR) 27.9 mmHg
== END 2022-11-18 01:09 ==
LOC: DI 00:49
PROVIDERS: PCP Family Medicine; Visit Provider Family Medicine
DX: I10 Essential (primary) hypertension (principal); I71.21 Aneurysm of the ascending aorta, without rupture
CPT/HCPCS: 93306

== ENCOUNTER → 2023-01-14 14:35 | Outpatient (BNVA) | payer MEDICARE, OTHER, SELFPAY | PROVIDERS: PCP Family Medicine; Referring Provider Family Medicine; Visit Provider Nurse Practitioner Adult Health | DX: R41.89 Other symptoms and signs involving cognitive functions and awareness (principal); I10 Essential (primary) hypertension | CPT/HCPCS: 99204; 99215 ==

== ENCOUNTER 2023-02-05 00:10 | Outpatient (CLI) | payer MEDICARE, SELFPAY ==
--- NOTE | 2023-02-05 06:15 | DI.MRI_ITS ---
Exam(s) MR BRAIN WO EXAM: MR BRAIN WO CLINICAL HISTORY: memory changes,cognitive impairment, r41.89 TECHNIQUE: Multiplanar multisequence MRI of the brain was performed. COMPARISON: MR MR BRAIN WO from 01/23/2021 FINDINGS: VENTRICLES AND EXTRA AXIAL SPACES: Normal in size and morphology for the patient's age. MIDLINE SHIFT: None. CEREBRAL PARENCHYMA: Mild atrophy. No focus of restricted diffusion to suggest acute infarct. No spa ce-occupying lesion identified. Stable scattered foci of high signal in the white matter consistent w ith microvascular changes. Old lacunar infarct again noted posterior to the posterior horn of the ri ght lateral ventricle. No new abnormalities. HEMORRHAGE: None. BRAINSTEM/CEREBELLUM: Normal. VISUALIZED PARANASAL SINUSES/MASTOIDS:Clear. Vasculature: Normal flow void. PITUITARY GLAND: Unremarkable. ORBITS: Unremarkable. IMPRESSION: Stable findings mild atrophy and white matter changes consistent with microvascular disease. DATA REPOSITORY:
== END 2023-02-05 00:30 ==
LOC: DI 00:10
PROVIDERS: PCP Family Medicine; Visit Provider Nurse Practitioner Adult Health
DX: R41.89 Other symptoms and signs involving cognitive functions and awareness (principal); I67.89 Other cerebrovascular disease
CPT/HCPCS: 70551

== ENCOUNTER 2023-04-13 02:35 | Outpatient (CLI) | payer MEDICARE, SELFPAY ==
[2023-04-13 13:37] LABS: Vitamin B12 217 pg/mL (193-986)
== END 2023-04-13 02:36 | disposition home or self-care (01) ==
LOC: LOS 02:35
PROVIDERS: PCP Family Medicine; Visit Provider Nurse Practitioner Adult Health
DX: E53.8 Deficiency of other specified B group vitamins; R41.89 Other symptoms and signs involving cognitive functions and awareness; E78.00 Pure hypercholesterolemia, unspecified; I10 Essential (primary) hypertension
CPT/HCPCS: 36415; 82607; 84443

== ENCOUNTER → 2023-04-14 07:57 | Outpatient (BNVA) | payer MEDICARE, SELFPAY | PROVIDERS: PCP Family Medicine; Referring Provider Family Medicine; Visit Provider Nurse Practitioner Adult Health | DX: G31.84 Mild cognitive impairment of uncertain or unknown etiology (principal); H91.93 Unspecified hearing loss, bilateral; I10 Essential (primary) hypertension | CPT/HCPCS: 99214 ==

== ENCOUNTER → 2023-08-03 07:49 | Outpatient (BNVA) | payer MEDICARE, SELFPAY | PROVIDERS: PCP Family Medicine; Visit Provider Urology | DX: N40.0 Benign prostatic hyperplasia without lower urinary tract symptoms (principal); N32.3 Diverticulum of bladder | CPT/HCPCS: 51798; 99214 ==

== ENCOUNTER 2023-08-13 01:19 | Outpatient (CLI) | payer MEDICARE, SELFPAY ==
[2023-08-13 12:17] LABS: Anion Gap 7.4 mmol/L (3-11); BUN 18 mg/dL (7-18); CO2 24.6 mmol/L (21.0-32.0); CREATININE 1.5 mg/dL (0.70-1.30); Calcium 8.7 mg/dL (8.5-10.1); Chloride 107 mmol/L (98-107); Estimated GFR 48.85 (mL/min/1.73m2); Glucose 145 mg/dL (74-106); Sodium 139 mmol/L (136-145)
[2023-08-13 12:48] LABS: Vitamin B12 448 pg/mL (193-986)
== END 2023-08-13 01:20 | disposition home or self-care (01) ==
LOC: LOS 01:19
PROVIDERS: PCP Family Medicine; Visit Provider Nurse Practitioner Adult Health
DX: I10 Essential (primary) hypertension (principal); E53.8 Deficiency of other specified B group vitamins
CPT/HCPCS: 36415; 80048; 82607

== ENCOUNTER → 2023-10-19 08:12 | Outpatient (BNVA) | payer MEDICARE, SELFPAY | PROVIDERS: PCP Family Medicine; Referring Provider Family Medicine; Visit Provider Nurse Practitioner Adult Health | DX: G31.84 Mild cognitive impairment of uncertain or unknown etiology (principal) | CPT/HCPCS: 99215 ==

== ENCOUNTER → 2023-11-04 02:47 | Outpatient (CLI) | payer MEDICARE, SELFPAY ==
--- NOTE | 2023-11-04 06:00 | DI.US_ITS ---
APPROVED REPORT EXAM: Comprehensive 2D, Doppler, and color-flow Echocardiogram Patient Location: Out-Patient Automatic Buffer: Fely Morelos RDCS (AE) Indications: f/u aneurysm, Dilated ascending aorta, HTN Other Information Study Quality: Good Conclusion Normal left ventricular wall thickness and chamber size. EF is 60%. Wall motion is normal Normal right ventricular size and function Both atria are normal in size Aortic valve is sclerotic and trileaflet with trace regurgitation Normal mitral valve with trace to mild regurgitation Normal tricuspid valve with mild regurgitation. Estimated right ventricular systolic pressure is 33 mmHg 8 Dilated ascending aorta 4.2 cm Wall motion Left Ventricle The left ventricle is normal size. The left ventricular systolic function is normal. The left ventric ular ejection fraction is within the normal range. There is normal left ventricular wall thickness. T here is no ventricular septal defect visualized. LVEF is 60%. Right Ventricle The right ventricle is normal size. The right ventricular systolic function is normal. Atria The left atrium size is normal. The right atrium size is normal. The interatrial septum is intact wit h no evidence for an atrial septal defect. Aortic Valve The Aortic valve is sclerotic. Aortic valve is trileaflet. There is no aortic valvular stenosis. Trac e aortic regurgitation. Mitral Valve The mitral valve is normal in structure. No evidence of mitral valve stenosis. Trace to mild mitral r egurgitation. Tricuspid Valve The tricuspid valve is normal in structure. There is no tricuspid valve stenosis. Mild tricuspid regu rgitation. The RVSP is 33.0mmHg. Pulmonic Valve The pulmonary valve is normal in structure. There is no pulmonic valvular stenosis. Trace to mild pul tori regurgitation. Great Vessels The aortic root is normal in size. The ascending aorta is moderately dilated. Aortic arch is not well visualized. IVC is normal in size and collapses >50% with inspiration. Pericardium There is no pericardial effusion. 2D Dimensions IVSD d PLAX 0.76 cm M: 0.6-1.2 Ao Root d 3.70 cm M: 3.1 - 3.7 LVPW d PLAX 0.84 cm M: 0.6 - 1.2 Ao Asc Diam d 4.29 cm M: 2.6 - 3.4 LVID d PLAX 4.59 cm M: 4.2 - 5.8 LVDs 3.13 cm M: 2.5 - 4.0 LV EF Teichholz 60.0 % FS 31.84 % LV EDV (Teich) 97.0 mL LV ESV (Teich) 38.8 mL M-Mode TAPSE 1.82 cm (M/F) >1.7 Auto EF LV EDV A4C 140.3 mL LV EDV A2C 114.0 mL LV EDV BP 133.5 mL LV ESV A4C 58.2 mL LV ESV A2C 48.3 mL LV ESV BP 54.3 mL LVEF(%) A4C 58.5 % LVEF(%) A2C 57.7 % LVEF(%) BP 59.4 % LV SV A4C 82.1 ml LV SV A2C 65.7 ml LV SV BP 79.3 ml LV CO A4C 4.5 L/min LV CO A2C 3.7 L/min LV CO BP 4.1 L/min HR A4C 54.62 BPM HR A2C 55.82 BPM LV EDV Index (BP) LA Volume LA Length A4C 4.9 cm LA Length A2C 4.6 cm LA Area A4C s 18.18 cm2 LA Area A2C s 16.45 cm2 LA Vol A4C A-L 57.01 mL LA Vol A2C A-L 49.57 mL LA Vol Biplane A-L 54.8 mL LA Vol/BSA A4C A-L LA Vol/BSA A2C A-L LA Vol/BSA BP A-L 24.6 mL/m2 LA Vol A4C MOD 51.9 mL LA Vol A2C MOD 46.8 mL LA Vol BP MOD 50.6 mL RA Volume RA Area A4C 12.5 cm2 RA ESV A4C (A-L) 26.5mL RA Vol/BSA A4C A-L RA Length A4C 5.0 cm RA ESV A4C (MOD) 26.0mL LV Diastology MV E' medial 0.087 (>0.07 m/s) MV E Vmax 1.09 (0.4-1.3 m/s) MV E/E' MED 12.42 (<14) MV A Vmax 0.85 (0.4-1.3 m/s) MV E' lateral 0.134 (>0.1 m/s) E/A Ratio 1.3 MV E/E' LAT 8.11 (<14) MV E' Average 0.111 m/s MV E/E'(average) 9.81 Aortic Valve AoV Vmax 1.88 m/s LVOT Vmax 1.21 m/s AoV Peak Grad 34.0 mmHg LVOT Peak Grad 5.9 mmHg AoV Area (Vmax) 1.80 cm2 LVOT VTI 0.292 m AoV VTI 0.478 m LVOT Mean Grad 3.2 mmHg AoV Mean Jac. 1.31 m/s LVOT SV 81.75 mL AoV Mean Grad 7.8 mmHg LVOT Diam s 1.85 cm AoV Area (VTI) 1.71 cm2 AV Regurg Peak Gr. 53.85 mmHg Velocity Ratio 0.64 AR Decel [place] 1.3m/sec2 AR DT 2763 msec AR PHT 801 msec AR Vmax 3.67 m/s Mitral Valve MV DT 237 (160-240 msec) Pulmonary Valve PV Vmax 0.94 (0.5-1.5 m/s) RVOT Vmax 0.92 m/s PV Peak Grad 3.5 mmHg RVOT Peak Gr. 3.4 mmHg PV Mean Jac 0.67 m/s RVOT VTI 0.236 m PV Mean Grad 2.0 mmHg RVOT Mean Gr. 2.0 mmHg Tricuspid Valve RA Pressure 3.00 mmHg TR Vmax 2.74 m/s TV S' 0.13 m/s TR Peak Grad 29.9 mmHg RVSP (TR) 33.0 mmHg
== END ==
PROVIDERS: PCP Family Medicine; Visit Provider Family Medicine
DX: I10 Essential (primary) hypertension (principal); I71.21 Aneurysm of the ascending aorta, without rupture
CPT/HCPCS: 93306

== ENCOUNTER 2024-04-18 00:57 | Outpatient (CLI) | payer MEDICARE, SELFPAY ==
--- NOTE | 2024-04-18 06:45 | DI.RAD_ITS ---
Exam(s) XR CERVICAL SPINE COMP 4-5V EXAM: XR CERVICAL SPINE COMP 4-5V CLINICAL HISTORY: chronic neck pain,M54.2. TECHNIQUE: 2D digital imaging was performed. Five views were performed. COMPARISON: CR CERVICAL SP. LIMITED (TRAUMA) from 12/03/2017 FINDINGS: BONES: No fracture or destructive lesion. Prior anterior fusion with hardware in place at C 6 7. DISKS: Mild narrowing of the C3-4 disc space and small endplate osteophytes. Moderate narrowing of t he C4-5 disc space with osteophytes. Moderate narrowing of the C5-6 disc space with endplate osteoph ytes. Severe facet degenerative changes noted from C2-3 through C5-6. Neural foraminal narrowing on the left at C3-4 and C4-5. The right neural foramen are suboptimally profiled are multilevel neura l foraminal narrowing is suspected from C 3 4 through C5-6.. ALIGNMENT: Cervical spinal alignment is within normal limits. The odontoid and atlantoaxial articulat ions are normal. SOFT TISSUE: Normal. The lung apices are clear. 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 DATA REPOSITORY: RADIATION DOSE DELIVERED:
== END 2024-04-18 01:17 ==
LOC: DI 00:57
PROVIDERS: PCP Family Medicine; Visit Provider Family Medicine
DX: M54.2 Cervicalgia (principal)
CPT/HCPCS: 72050

== ENCOUNTER → 2024-04-19 08:04 | Outpatient (BNVA) | payer MEDICARE, SELFPAY | PROVIDERS: PCP Family Medicine; Referring Provider Family Medicine; Visit Provider Nurse Practitioner Adult Health | DX: G31.84 Mild cognitive impairment of uncertain or unknown etiology (principal) | CPT/HCPCS: 99215 ==

== ENCOUNTER 2024-06-15 03:36 | Outpatient (CLI) | payer MEDICARE, SELFPAY ==
[2024-06-15 12:20] LABS: Bilirubin Negative (Negative); Blood Negative (Negative); Clarity Sl Cloudy (Clear); Glucose Negative (Negative); Ketones Trace mg/dL (Negative); Leukocyte Esterase Trace (Negative); Nitrite Negative (Negative); Specific Gravity 1.025 (1.005-1.025); Urobilinogen 0.2 mg/dL (Up to 0.2); pH 5.5 (5-8)
[2024-06-15 12:28] LABS: Bacteria Packed HPF (Negative); C & S Indicated? Yes; Casts Negative LPF (Negative); Crystals Negative HPF (Negative); Epithelial Cells Few HPF (Negative); Mucus Negative (Negative); RBC Negative HPF (0-2)
[2024-06-15 12:33] LABS: ALT 31 U/L (16-63); AST 22 U/L (15-37); Albumin 3.8 g/dL (3.4-5.0); Alkaline Phosphatase 97 U/L (46-116); Anion Gap 8.2 mmol/L (3-11); BUN 20 mg/dL (7-18); Bilirubin, Total 1.29 mg/dL (0.2-1.0); CO2 26.8 mmol/L (21.0-32.0); CREATININE 1.5 mg/dL (0.70-1.30); Calcium 9.1 mg/dL (8.5-10.1); Chloride 111 mmol/L (98-107); Estimated GFR 48.55 (mL/min/1.73m2); Glucose 91 mg/dL (74-106); PHOSPHORUS 3.3 mg/dL (2.6-4.7); Potassium 4.2 mmol/L (3.5-5.1); Sodium 146 mmol/L (136-145); Total Protein 7.1 g/dL (6.4-8.2)
[2024-06-15 13:13] LABS: Vitamin D 25 Total 17.7 ng/mL (30-100)
[2024-06-15 13:33] LABS: COMMENT (LAB VIEW ONLY) 182.27 mg/dL; PROTEIN 22.2 mg/dL; Prot/Crea Ur Ratio 0.12
[2024-06-15 19:51] LABS: Parathyroid Hormone,Intact 67 pg/mL (19-88)
== END 2024-06-15 03:37 | disposition home or self-care (01) ==
LOC: LOS 03:36
PROVIDERS: PCP Family Medicine; Visit Provider Family Medicine
DX: N18.31 Chronic kidney disease, stage 3a (principal)
CPT/HCPCS: 36415; 80053; 82306; 81003; 81015; 82565; 83970; 84100; 84156; 84550; 87086

== ENCOUNTER → 2024-08-04 07:54 | Outpatient (BNVA) | payer MEDICARE, SELFPAY | PROVIDERS: PCP Family Medicine; Referring Provider Family Medicine; Visit Provider Urology | DX: N40.0 Benign prostatic hyperplasia without lower urinary tract symptoms (principal); N32.3 Diverticulum of bladder | CPT/HCPCS: 51798; 99213 ==

== ENCOUNTER → 2024-10-18 08:01 | Outpatient (BNVA) | payer MEDICARE, SELFPAY | PROVIDERS: PCP Family Medicine; Referring Provider Family Medicine; Visit Provider Nurse Practitioner Adult Health | DX: G31.84 Mild cognitive impairment of uncertain or unknown etiology (principal) | CPT/HCPCS: 99214 ==

== ENCOUNTER 2024-10-31 03:07 | Outpatient (CLI) | payer MEDICARE, SELFPAY ==
[2024-10-31 13:10] LABS: Anion Gap 5.8 mmol/L (3-11); BUN 15 mg/dL (7-18); CO2 29.2 mmol/L (21.0-32.0); CREATININE 1.5 mg/dL (0.70-1.30); Calcium 8.8 mg/dL (8.5-10.1); Chloride 110 mmol/L (98-107); Estimated GFR 48.25 (mL/min/1.73m2); Glucose 106 mg/dL (74-106); Potassium 4.5 mmol/L (3.5-5.1); Sodium 145 mmol/L (136-145)
[2024-10-31 13:54] LABS: Vitamin B12 874 pg/mL (193-986)
== END 2024-10-31 03:08 | disposition home or self-care (01) ==
LOC: LOS 03:07
PROVIDERS: PCP Family Medicine; Visit Provider Family Medicine
DX: I10 Essential (primary) hypertension (principal); N18.31 Chronic kidney disease, stage 3a
CPT/HCPCS: 36415; 80048; 82607

== ENCOUNTER 2025-04-18 02:33 | Outpatient (CLI) | payer MEDICARE, SELFPAY ==
--- NOTE | 2025-04-18 05:30 | DI.RAD_ITS ---
Exam(s) XR CERVICAL SPINE COMP 4-5V EXAM: XR CERVICAL SPINE COMP 4-5V CLINICAL HISTORY: recent neck hyperextension; worsened pain,m54.2,cervicalgia. TECHNIQUE: 2D digital imaging was performed. Five views were performed. COMPARISON: CR XR CERVICAL SPINE COMP 4-5V from 04/18/2024 FINDINGS: BONES: No fracture or destructive lesion. Anterior fusion hardware is again noted at C6-7. DISKS: There is mild disc space narrowing and small endplate osteophytes at C3- 4. There is moderate narrowing of the C4-5 and C5-6 disc spaces with endplate osteophytes. There are prominent facet degenerative changes greatest at C3-4 on the right, causing neural foraminal encroachment. No foraminal narrowing is also seen at C4-5 and C5-6 on the right. There is left neural foraminal narrowing at C4-5. ALIGNMENT: Cervical spinal alignment is within normal limits. The odontoid and atlantoaxial articulations are normal. SOFT TISSUE: Normal. The lung apices are clear. IMPRESSION: Postsurgical and degenerative changes. No acute abnormality. DATA REPOSITORY: RADIATION DOSE DELIVERED:
== END 2025-04-18 02:53 ==
PROVIDERS: PCP Family Medicine; Visit Provider Family Medicine
DX: M54.2 Cervicalgia (principal)
CPT/HCPCS: 72050

== ENCOUNTER → 2025-08-03 07:46 | Outpatient (BNVA) | payer MEDICARE, SELFPAY | PROVIDERS: PCP Family Medicine; Referring Provider Family Medicine; Visit Provider Urology | DX: N40.0 Benign prostatic hyperplasia without lower urinary tract symptoms (principal); N32.3 Diverticulum of bladder; N39.0 Urinary tract infection, site not specified | CPT/HCPCS: 99214 ==